=== PATIENT | male | born 1940 | race Caucasian/White ===

== ENCOUNTER → 2018-11-12 | Outpatient (CLI) | payer MEDICARE ==
[~2018-11-12] MED LIST: ASPIRIN 81M81 MG/TA2 PO; CARDURA 2MG2 MG PO; DYAZIDE 25 MG-31 CAP PO; FISH OIL 1000MG1 CAP PO; GLUCOTROL 5M5 MG/TAB PO; NORVASC 10MG10 MG PO; PROTONIX 40MG T40 MG PO; REQUIP 0.5MG0.5 MG PO; SINGULAIR 110 MG/TAB PO; ZOCOR 20MG20 MG PO
== END ==
LOC: COL.VAS 09:57
DX: Z13.6 Encounter for screening for cardiovascular disorders (principal); M79.89 Other specified soft tissue disorders

== ENCOUNTER → 2019-01-26 | Outpatient (CLI) | payer MEDICARE | LOC: COL.LAB 10:53 | DX: Z01.812 Encounter for preprocedural laboratory examination (principal) ==

== ENCOUNTER → 2019-03-17 | Outpatient (CLI) | payer MEDICARE | LOC: COL.VAS 12:55 | DX: R60.0 Localized edema (principal) ==

== ENCOUNTER → 2019-04-06 | Outpatient (CLI) | payer MEDICARE ==
[2019-04-06 17:37] LABS: BASO % 0.4 % (0.0-2.0); EOS # 0.1 (0.0-0.7); EOS % 1.8 % (0-4.0); GRAN # 4.6 (1.4-6.5); HEMATOCRIT 39.8 % (42.0-52.0); LYMPH # 2.1 (1.2-3.4); LYMPH % 27.3 % (20.0-51.0); MEAN CELL VOLUME 94 fl (80.0-100.0); MEAN CORPUSCULAR HEMOGLOBIN 31 pg (27.0-31.0); MEAN CORPUSCULAR HGB CONC 33 g/dl (33.0-37.0); MEAN PLATELET VOLUME 10.7 fl (7.4-10.4); MONO # 0.7 (0.1-0.6); MONO % 9.2 % (1.7-9.3); PLATELET COUNT 229 K/mm3 (130-400); RED BLOOD COUNT 4.22 M/mm3 (4.20-5.60); REDCELL DISTRIBUTION WIDTH-CV 12.9 % (11.5-14.5)
[2019-04-06 17:59] LABS: ERYTHROCYTE SEDIMENTATION RATE 4 mm/hr (0-30)
== END ==
LOC: COL.LAB 16:46
PROVIDERS: Registered Nurse
DX: M79.661 Pain in right lower leg (principal); M79.89 Other specified soft tissue disorders; Z96.651 Presence of right artificial knee joint

== ENCOUNTER → 2019-04-07 | Outpatient (CLI) | payer MEDICARE | LOC: COL.VAS 12:40 | DX: M79.89 Other specified soft tissue disorders (principal); R79.89 Other specified abnormal findings of blood chemistry ==

== ENCOUNTER 2019-09-12 16:59 | Emergency (ER) | payer MEDICARE, OTHER ==
[~2019-09-12] VITALS: Ht 190.5 cm; Wt 100.0 kg
[2019-09-12 17:11] VITALS: TEMP 97.8
[2019-09-12 17:41] LABS: BASO % 0.5 % (0.0-2.0); EOS # 0.2 (0.0-0.7); EOS % 2.7 % (0-4.0); GRAN % 62.3 % (42.2-75.2); HEMOGLOBIN 13.3 g/dl (13.5-18.0); LYMPH # 1.9 (1.2-3.4); LYMPH % 23.5 % (20.0-51.0); MEAN CELL VOLUME 93 fl (80.0-100.0); MEAN CORPUSCULAR HEMOGLOBIN 32 pg (27.0-31.0); MEAN CORPUSCULAR HGB CONC 34 g/dl (33.0-37.0); MEAN PLATELET VOLUME 10.4 fl (7.4-10.4); MONO # 0.8 (0.1-0.6); MONO % 10.5 % (1.7-9.3); PLATELET COUNT 201 K/mm3 (130-400); RED BLOOD COUNT 4.19 M/mm3 (4.20-5.60); REDCELL DISTRIBUTION WIDTH-CV 12.8 % (11.5-14.5)
[2019-09-12 17:47] LABS: INR 0.9 (0.8-3.0); PROTHROMBIN TIME 10.5 SECONDS (9.7-12.8)
[2019-09-12 17:49] LABS: PARTIAL THROMBOPLASTIN TIME 28.3 SECONDS (26.0-37.0)
[2019-09-12 17:59] LABS: ALANINE AMINOTRANSFERASE 19 U/L (21-72); ALBUMIN 4.5 gm/dL (3.5-5.0); ALKALINE PHOSPHATASE 57 U/L (50-136); ANION GAP 11 mmol/L (7-16); AST,SGOT 24 U/L (15-37); BILIRUBIN,TOTAL 0.3 mg/dL (0.0-1.0); BLOOD UREA NITROGEN 21 mg/dL (9-20); CALCIUM 9.9 mg/dL (8.4-10.2); CARBON DIOXIDE 25 mmol/L (22-30); CHLORIDE 100 mmol/L (98-107); CREATININE, serum 1.15 (0.66-1.25); GLUCOSE 164 mg/dL (74-106); SODIUM 136 mmol/L (137-145); TOTAL PROTEIN 7.5 gm/dL (6.4-8.2)
[2019-09-12] MEDS ORDERED: GLUCOPHAGE1000 MG PO (18:03)
[2019-09-12] MEDS ORDERED: PRINZIDE 25 MG-1 TAB PO (18:05)
[2019-09-12] MEDS ORDERED: NEURONTIN100 MG/CAP PO (18:07)
[2019-09-12] MEDS ORDERED: NATURAL E400 IU PO (18:07)
[2019-09-12] MEDS ORDERED: FLOMAX 0.40.4 MG/CAP PO (18:07)
[2019-09-12] MEDS ORDERED: TURMERIC500 MG PO (18:08)
[2019-09-12 18:23] LABS: C-REACTIVE PROTEIN < 0.5 mg/dL (0.0-0.9); TROPONIN-I < 0.012 ng/mL (0.000-0.035)
[2019-09-12] MEDS ORDERED: NORVASC 5MG5 MG/TAB PO (19:29)
[2019-09-12 19:47] VITALS: BP 122/55; PULSE 72
== END 2019-09-12 19:47 | disposition home or self-care (01) ==
LOC: COL.ER 16:59
PROVIDERS: Emergency Medicine
DX: R42 Dizziness and giddiness (principal); K21.9 Gastro-esophageal reflux disease without esophagitis; E78.5 Hyperlipidemia, unspecified; I10 Essential (primary) hypertension; I25.10 Atherosclerotic heart disease of native coronary artery without angina pectoris; E11.9 Type 2 diabetes mellitus without complications; Z79.84 Long term (current) use of oral hypoglycemic drugs
CPT/HCPCS: J7030

== ENCOUNTER → 2020-07-28 | Outpatient (CLI) | payer MEDICARE, OTHER ==
[~2020-07-28] MED LIST changes: +ADVIL200 MG PO; +BRILINTA90 MG PO; +DESYREL 100MG100 MG PO; +EFFIENT10 MG PO; +FLOMAX 0.40.4 MG/CAP PO; +GLUCOPHAGE XR500 M1 PO; +GLUCOPHAGE1000 MG PO; +LIPITOR 80MG80 MG PO; +MAG-OX 400400 MG/TAB PO; +NATURAL E400 IU PO; +NEURONTIN100 MG/CAP PO; +NORVASC 5MG5 MG/TAB PO; +PRINZIDE 25 MG-1 TAB PO; +PROAIR HFA0.09 MG/AC IH; +REQUIP2 MG PO; +TURMERIC500 MG PO; +TYLENOL 8 HR PO; +ZESTRIL 10MG10 MG PO
== END ==
LOC: COL.PUL 11:08
DX: R79.89 Other specified abnormal findings of blood chemistry (principal); R06.02 Shortness of breath; Z87.891 Personal history of nicotine dependence

== ENCOUNTER → 2020-08-19 | Outpatient (CLI) | payer MEDICARE, OTHER | LOC: COL.RAD 10:45 | DX: J98.6 Disorders of diaphragm (principal) ==

== ENCOUNTER 2020-09-22 09:58 | Emergency (ER) | payer MEDICARE ==
[~2020-09-22] VITALS: Ht 190.5 cm; Wt 101.8 kg
[2020-09-22 10:12] VITALS: TEMP 97.8
[2020-09-22 11:03] LABS: BASO % 0.3 % (0.0-2.0); EOS # 0.1 (0.0-0.7); EOS % 1.2 % (0-4.0); GRAN # 4.9 (1.4-6.5); GRAN % 66.9 % (42.2-75.2); HEMOGLOBIN 13.9 g/dl (13.5-18.0); LYMPH # 1.6 (1.2-3.4); LYMPH % 21.5 % (20.0-51.0); MEAN CELL VOLUME 92 fl (80.0-100.0); MEAN CORPUSCULAR HEMOGLOBIN 30 pg (27.0-31.0); MEAN CORPUSCULAR HGB CONC 33 g/dl (33.0-37.0); MEAN PLATELET VOLUME 10.6 fl (7.4-10.4); MONO # 0.7 (0.1-0.6); MONO % 9.5 % (1.7-9.3); PLATELET COUNT 211 K/mm3 (130-400); RED BLOOD COUNT 4.58 M/mm3 (4.20-5.60); REDCELL DISTRIBUTION WIDTH-CV 13.4 % (11.5-14.5)
[2020-09-22 11:16] LABS: ALANINE AMINOTRANSFERASE 26 U/L (4-49); ALBUMIN 4.4 gm/dL (3.5-5.0); ALKALINE PHOSPHATASE 55 U/L (50-136); ANION GAP 7 mmol/L (7-16); AST,SGOT 29 U/L (15-37); BILIRUBIN,TOTAL 0.8 mg/dL (0.0-1.0); BLOOD UREA NITROGEN 27 mg/dL (9-20); CALCIUM 9.6 mg/dL (8.4-10.2); CARBON DIOXIDE 29 mmol/L (22-30); CHLORIDE 99 mmol/L (98-107); CREATININE, serum 1.19 (0.66-1.25); GLUCOSE 155 mg/dL (74-106); POTASSIUM 4.9 mmol/L (3.4-5.0); SODIUM 135 mmol/L (137-145); TOTAL PROTEIN 7.3 gm/dL (6.4-8.2)
[2020-09-22 11:28] LABS: COLLECTION METHOD CLEAN CATCH
[2020-09-22 11:29] LABS: TROPONIN-I < 0.012 ng/mL (0.000-0.035)
[2020-09-22 12:03] LABS: MUCOUS Present /lpf; PH 6 (5-8); SQUAMOUS EPITHELIAL None Seen /hpf; URINE APPEARANCE Clear; URINE BACTERIA None Seen /hpf; URINE BILIRUBIN Negative (NEGATIVE); URINE BLOOD Negative (NEGATIVE); URINE COLOR Yellow; URINE GLUCOSE Negative (NEGATIVE); URINE KETONE Negative (NEGATIVE); URINE LEUKOCYTE ESTERASE 1+ (NEGATIVE); URINE NITRATE Negative (NEGATIVE); URINE PROTEIN(semi-quant) Negative (NEGATIVE); URINE RBC 0-2 /hpf; URINE UROBILINOGEN Negative (NEGATIVE)
[2020-09-22 13:02] VITALS: BP 125/64; PULSE 60
== END 2020-09-22 13:05 | disposition home or self-care (01) ==
LOC: COL.ER 09:58
PROVIDERS: Emergency Medicine
DX: R27.0 Ataxia, unspecified (principal); H81.20 Vestibular neuronitis, unspecified ear; I10 Essential (primary) hypertension; E78.5 Hyperlipidemia, unspecified; N40.0 Benign prostatic hyperplasia without lower urinary tract symptoms; Z87.891 Personal history of nicotine dependence; Z79.84 Long term (current) use of oral hypoglycemic drugs

== ENCOUNTER 2020-10-24 13:43 | Outpatient (RCR) | payer MEDICARE, OTHER | END 2020-10-26 06:39 | disposition home or self-care (01) | LOC: COL.CR 13:43 | DX: Z48.812 Encounter for surgical aftercare following surgery on the circulatory system (principal); Z95.5 Presence of coronary angioplasty implant and graft ==

== ENCOUNTER → 2020-12-27 | Outpatient (CLI) | payer MEDICARE, OTHER ==
[~2020-12-27] MED LIST changes: +ANTIVERT 12.512.5 MG PO; +BREO ELLIPTA 21 EACH IH; +INCRUSE EL62.5 MCG/A IH; +LASIX 20MG TABL20 MG PO; +MELATIN 3 MG-11 TAB PO; +THEO-DUR 3300 MG/TAB PO; +ZESTRIL 20MG TA20 MG PO
== END ==
LOC: MHCPAIN 14:09
DX: M47.817 Spondylosis without myelopathy or radiculopathy, lumbosacral region (principal); M54.16 Radiculopathy, lumbar region; M53.3 Sacrococcygeal disorders, not elsewhere classified; E11.22 Type 2 diabetes mellitus with diabetic chronic kidney disease; N18.9 Chronic kidney disease, unspecified; Z95.5 Presence of coronary angioplasty implant and graft
CPT/HCPCS: G0463

== ENCOUNTER 2021-03-01 22:21 | Emergency (ER) | payer MEDICARE, OTHER ==
[~2021-03-01] VITALS: Ht 190.5 cm; Wt 106.8 kg
[~2021-03-01 22:21] MED LIST changes: -ANTIVERT 12.512.5 MG PO; -BREO ELLIPTA 21 EACH IH; -INCRUSE EL62.5 MCG/A IH; -LASIX 20MG TABL20 MG PO; -MELATIN 3 MG-11 TAB PO; -THEO-DUR 3300 MG/TAB PO; -ZESTRIL 20MG TA20 MG PO
[2021-03-01 22:48] VITALS: TEMP 98.1
[2021-03-01 23:29] LABS: COLLECTION METHOD CLEAN CATCH
[2021-03-01 23:31] LABS: BASO % 0.4 % (0.0-2.0); EOS # 0.4 (0.0-0.7); EOS % 5.2 % (0-4.0); GRAN # 4.4 (1.4-6.5); GRAN % 58.8 % (42.2-75.2); HEMATOCRIT 40.6 % (42.0-52.0); HEMOGLOBIN 13.5 g/dl (13.5-18.0); LYMPH # 1.9 (1.2-3.4); LYMPH % 25.8 % (20.0-51.0); MEAN CELL VOLUME 93 fl (80.0-100.0); MEAN CORPUSCULAR HEMOGLOBIN 31 pg (27.0-31.0); MEAN CORPUSCULAR HGB CONC 33 g/dl (33.0-37.0); MEAN PLATELET VOLUME 10.9 fl (7.4-10.4); MONO # 0.7 (0.1-0.6); MONO % 9.3 % (1.7-9.3); PLATELET COUNT 210 K/mm3 (130-400); RED BLOOD COUNT 4.36 M/mm3 (4.20-5.60); REDCELL DISTRIBUTION WIDTH-CV 12.6 % (11.5-14.5)
[2021-03-01 23:34] LABS: PH 7 (5-8); SQUAMOUS EPITHELIAL 0-2 /hpf; URINE APPEARANCE Clear; URINE BACTERIA None Seen /hpf; URINE BILIRUBIN Negative (NEGATIVE); URINE BLOOD Negative (NEGATIVE); URINE COLOR Straw; URINE GLUCOSE Negative (NEGATIVE); URINE KETONE Negative (NEGATIVE); URINE LEUKOCYTE ESTERASE Negative (NEGATIVE); URINE NITRATE Negative (NEGATIVE); URINE PROTEIN(semi-quant) Negative (NEGATIVE); URINE RBC 0-2 /hpf; URINE UROBILINOGEN Negative (NEGATIVE)
[2021-03-01 23:37] LABS: ALANINE AMINOTRANSFERASE 23 U/L (4-49); ALBUMIN 4.3 gm/dL (3.5-5.0); ALKALINE PHOSPHATASE 66 U/L (50-136); ANION GAP 9 mmol/L (7-16); AST,SGOT 24 U/L (15-37); BILIRUBIN,TOTAL 0.2 mg/dL (0.0-1.0); BLOOD UREA NITROGEN 23 mg/dL (9-20); CALCIUM 9.8 mg/dL (8.4-10.2); CARBON DIOXIDE 26 mmol/L (22-30); CHLORIDE 101 mmol/L (98-107); CREATININE, serum 1.37 (0.66-1.25); GLUCOSE 159 mg/dL (74-106); POTASSIUM 4.6 mmol/L (3.4-5.0); SODIUM 136 mmol/L (137-145); TOTAL PROTEIN 7.7 gm/dL (6.4-8.2)
[2021-03-01 23:58] LABS: TROPONIN-I < 0.012 ng/mL (0.000-0.035)
[2021-03-02 01:12] VITALS: BP 126/71; PULSE 83
== END 2021-03-02 01:12 | disposition home or self-care (01) ==
LOC: COL.ER 22:21
PROVIDERS: Emergency Medicine
DX: M79.89 Other specified soft tissue disorders (principal); R60.0 Localized edema; E78.5 Hyperlipidemia, unspecified; E11.22 Type 2 diabetes mellitus with diabetic chronic kidney disease; I12.9 Hypertensive chronic kidney disease with stage 1 through stage 4 chronic kidney disease, or unspecified chronic kidney disease; N18.9 Chronic kidney disease, unspecified; I25.10 Atherosclerotic heart disease of native coronary artery without angina pectoris; J45.909 Unspecified asthma, uncomplicated; K21.9 Gastro-esophageal reflux disease without esophagitis; Z95.5 Presence of coronary angioplasty implant and graft; Z96.651 Presence of right artificial knee joint; Z79.82 Long term (current) use of aspirin; Z79.84 Long term (current) use of oral hypoglycemic drugs; Z79.51 Long term (current) use of inhaled steroids; Z79.899 Other long term (current) drug therapy

== ENCOUNTER → 2021-03-23 | Outpatient (CLI) | payer MEDICARE, OTHER ==
[~2021-03-23] MED LIST changes: +ANTIVERT 12.512.5 MG PO; +BREO ELLIPTA 21 EACH IH; +INCRUSE EL62.5 MCG/A IH; +LASIX 20MG TABL20 MG PO; +MELATIN 3 MG-11 TAB PO; +THEO-DUR 3300 MG/TAB PO; +ZESTRIL 20MG TA20 MG PO
== END ==
LOC: MHCPAIN 08:37
DX: M47.817 Spondylosis without myelopathy or radiculopathy, lumbosacral region (principal); M54.16 Radiculopathy, lumbar region
CPT/HCPCS: G0463; J1100; Q9967

== ENCOUNTER 2021-04-07 22:43 | Emergency (ER) | payer MEDICARE, OTHER ==
[~2021-04-07] VITALS: Ht 190.5 cm; Wt 104.5 kg
[~2021-04-07 22:43] MED LIST changes: -ANTIVERT 12.512.5 MG PO; -BREO ELLIPTA 21 EACH IH; -INCRUSE EL62.5 MCG/A IH; -LASIX 20MG TABL20 MG PO; -MELATIN 3 MG-11 TAB PO; -THEO-DUR 3300 MG/TAB PO; -ZESTRIL 20MG TA20 MG PO
[2021-04-07 22:49] VITALS: TEMP 97.2
[2021-04-07 23:17] LABS: BASO % 0.4 % (0.0-2.0); EOS # 0.3 (0.0-0.7); EOS % 3.6 % (0-4.0); GRAN # 5.1 (1.4-6.5); GRAN % 63.3 % (42.2-75.2); HEMATOCRIT 40.1 % (42.0-52.0); HEMOGLOBIN 13.4 g/dl (13.5-18.0); LYMPH # 1.9 (1.2-3.4); LYMPH % 23.6 % (20.0-51.0); MEAN CELL VOLUME 94 fl (80.0-100.0); MEAN CORPUSCULAR HEMOGLOBIN 31 pg (27.0-31.0); MEAN CORPUSCULAR HGB CONC 33 g/dl (33.0-37.0); MEAN PLATELET VOLUME 10.9 fl (7.4-10.4); MONO # 0.7 (0.1-0.6); MONO % 8.5 % (1.7-9.3); PLATELET COUNT 193 K/mm3 (130-400); RED BLOOD COUNT 4.28 M/mm3 (4.20-5.60); REDCELL DISTRIBUTION WIDTH-CV 12.8 % (11.5-14.5)
[2021-04-07 23:33] LABS: ALANINE AMINOTRANSFERASE 28 U/L (4-49); ALBUMIN 4.3 gm/dL (3.5-5.0); ALKALINE PHOSPHATASE 58 U/L (50-136); ANION GAP 5 mmol/L (7-16); AST,SGOT 25 U/L (15-37); BILIRUBIN,TOTAL 0.3 mg/dL (0.0-1.0); BLOOD UREA NITROGEN 24 mg/dL (9-20); CALCIUM 10.2 mg/dL (8.4-10.2); CARBON DIOXIDE 27 mmol/L (22-30); CHLORIDE 101 mmol/L (98-107); CREATININE, serum 1.35 (0.66-1.25); GLUCOSE 161 mg/dL (74-106); POTASSIUM 4.3 mmol/L (3.4-5.0); SODIUM 134 mmol/L (137-145); TOTAL PROTEIN 7.4 gm/dL (6.4-8.2)
[2021-04-07 23:39] LABS: CREATINE KINASE 130 U/L (55-170); MAGNESIUM 2.3 mg/dL (1.6-2.3)
[2021-04-07 23:57] LABS: TROPONIN-I < 0.012 ng/mL (0.000-0.035)
[2021-04-08] MEDS ORDERED: ZESTRIL 20MG TA20 MG PO (00:25)
[2021-04-08] MEDS ORDERED: BREO ELLIPTA 21 EACH IH (00:26)
[2021-04-08] MEDS ORDERED: INCRUSE EL62.5 MCG/A IH (00:27)
[2021-04-08] MEDS ORDERED: THEO-DUR 3300 MG/TAB PO (00:27)
[2021-04-08] MEDS ORDERED: LASIX 20MG TABL20 MG PO (00:28)
[2021-04-08] MEDS ORDERED: ANTIVERT 12.512.5 MG PO (00:28)
[2021-04-08] MEDS ORDERED: MELATIN 3 MG-11 TAB PO (00:29)
[2021-04-08 00:58] VITALS: BP 104/72; PULSE 65
== END 2021-04-08 00:59 | disposition home or self-care (01) ==
LOC: COL.ER 22:43
PROVIDERS: Emergency Medicine
DX: R06.00 Dyspnea, unspecified (principal); R79.89 Other specified abnormal findings of blood chemistry; R06.02 Shortness of breath; E86.0 Dehydration; J45.909 Unspecified asthma, uncomplicated; I10 Essential (primary) hypertension; I25.10 Atherosclerotic heart disease of native coronary artery without angina pectoris; E11.9 Type 2 diabetes mellitus without complications; Z87.891 Personal history of nicotine dependence; Z79.82 Long term (current) use of aspirin; Z79.51 Long term (current) use of inhaled steroids; Z79.899 Other long term (current) drug therapy
CPT/HCPCS: J7030

== ENCOUNTER → 2021-04-19 | Outpatient (CLI) | payer MEDICARE, OTHER ==
[~2021-04-19] MED LIST changes: +ANTIVERT 12.512.5 MG PO; +BREO ELLIPTA 21 EACH IH; +INCRUSE EL62.5 MCG/A IH; +LASIX 20MG TABL20 MG PO; +MELATIN 3 MG-11 TAB PO; +THEO-DUR 3300 MG/TAB PO; +ZESTRIL 20MG TA20 MG PO
== END ==
LOC: MHCPAIN 09:45
DX: M47.817 Spondylosis without myelopathy or radiculopathy, lumbosacral region (principal); M53.3 Sacrococcygeal disorders, not elsewhere classified; M54.16 Radiculopathy, lumbar region
CPT/HCPCS: G0463

== ENCOUNTER → 2021-07-05 | Outpatient (CLI) | payer MEDICARE, OTHER | LOC: MHCPAIN 09:36 | DX: M47.817 Spondylosis without myelopathy or radiculopathy, lumbosacral region (principal); M54.16 Radiculopathy, lumbar region; M54.2 Cervicalgia | CPT/HCPCS: G0463 ==

== ENCOUNTER 2021-07-20 11:15 | Outpatient (RCR) | payer MEDICARE, OTHER | END 2021-07-26 | disposition still patient (30) | LOC: WSPT | DX: M47.896 Other spondylosis, lumbar region (principal) ==

== ENCOUNTER 2021-09-01 10:30 | Outpatient (RCR) | payer MEDICARE, OTHER | END 2021-09-01 15:00 | disposition home or self-care (01) | LOC: WSPT 10:30 | DX: M47.816 Spondylosis without myelopathy or radiculopathy, lumbar region (principal) ==

== ENCOUNTER 2021-11-15 10:54 | Emergency (ER) | payer MEDICARE, OTHER ==
[~2021-11-15] VITALS: Ht 190.5 cm; Wt 102.3 kg
[2021-11-15 11:00] VITALS: BP 102/55; PULSE 89; TEMP 97.6
== END 2021-11-15 11:55 | disposition home or self-care (01) ==
LOC: COL.ER 10:54
DX: R60.0 Localized edema (principal); E11.40 Type 2 diabetes mellitus with diabetic neuropathy, unspecified; I10 Essential (primary) hypertension; J44.9 Chronic obstructive pulmonary disease, unspecified; I25.10 Atherosclerotic heart disease of native coronary artery without angina pectoris; Z96.651 Presence of right artificial knee joint; Z79.82 Long term (current) use of aspirin; Z79.84 Long term (current) use of oral hypoglycemic drugs; Z79.899 Other long term (current) drug therapy

== ENCOUNTER → 2021-12-28 | Outpatient (CLI) | payer MEDICARE, OTHER | LOC: MHCPAIN 09:18 | DX: M47.817 Spondylosis without myelopathy or radiculopathy, lumbosacral region (principal); M53.3 Sacrococcygeal disorders, not elsewhere classified; M54.16 Radiculopathy, lumbar region | CPT/HCPCS: J1100; Q9967 ==

== ENCOUNTER → 2022-01-30 | Outpatient (CLI) | payer MEDICARE, OTHER | LOC: MHCPAIN 11:06 | DX: M54.12 Radiculopathy, cervical region (principal); M54.50 Low back pain, unspecified; M53.3 Sacrococcygeal disorders, not elsewhere classified | CPT/HCPCS: G0463 ==

== ENCOUNTER → 2022-02-01 | Outpatient (RCR) | payer MEDICARE, OTHER | END | disposition still patient (30) | LOC: WSPT | DX: M54.12 Radiculopathy, cervical region (principal); R53.1 Weakness ==

== ENCOUNTER 2022-02-21 00:14 | Emergency (ER) | payer MEDICARE, OTHER ==
[2022-02-21 00:20] VITALS: TEMP 98.4
[2022-02-21 00:54] LABS: BASO % 0.3 % (0.0-2.0); EOS # 0.1 K/mm3 (0.0-0.7); EOS % 0.9 % (0.0-4.0); GRAN # 4.6 K/mm3 (1.4-6.5); GRAN % 68.8 % (42.2-75.2); HEMATOCRIT 37.3 % (42.0-52.0); HEMOGLOBIN 12.6 g/dl (13.5-18.0); LYMPH # 1.4 K/mm3 (1.2-3.4); LYMPH % 20.8 % (20.0-51.0); MEAN CELL VOLUME 94 fl (80.0-100.0); MEAN CORPUSCULAR HEMOGLOBIN 32 pg (27-31); MEAN CORPUSCULAR HGB CONC 34 g/dl (33.0-37.0); MEAN PLATELET VOLUME 11.7 fl (7.4-10.4); MONO # 0.6 K/mm3 (0.1-0.6); MONO % 8.8 % (1.7-9.3); PLATELET COUNT 174 K/mm3 (130-400); RED BLOOD COUNT 3.99 M/mm3 (4.20-5.60); REDCELL DISTRIBUTION WIDTH-CV 12.6 % (11.5-14.5)
[2022-02-21 01:12] LABS: ALBUMIN 3.8 gm/dL (3.4-4.8); BILIRUBIN,TOTAL 0.4 mg/dL (0.2-1.2); CALCIUM 9.2 mg/dL (8.4-10.2); CREATININE, serum 1.61 mg/dL (0.72-1.25); POTASSIUM 4.5 mmol/L (3.5-4.5); TOTAL PROTEIN 6.4 gm/dL (6.2-8.1)
[2022-02-21 02:42] VITALS: BP 130/69; PULSE 60
== END 2022-02-21 02:42 | disposition home or self-care (01) ==
LOC: COL.ER 00:14
PROVIDERS: Personal Emergency Response Attendant
DX: E86.0 Dehydration (principal)
CPT/HCPCS: J2405; J7030

== ENCOUNTER 2022-03-02 09:30 | Outpatient (RCR) | payer MEDICARE, OTHER | END 2022-03-03 | disposition home or self-care (01) | LOC: WSPT | DX: M54.12 Radiculopathy, cervical region (principal) ==

== ENCOUNTER 2022-03-30 10:00 | Outpatient (RCR) | payer MEDICARE, OTHER | END 2022-04-03 | disposition home or self-care (01) | LOC: WSPT | DX: M54.12 Radiculopathy, cervical region (principal) ==

== ENCOUNTER 2022-04-05 08:41 | Outpatient (CLI) | payer MEDICARE, OTHER ==
[~2022-04-05] VITALS: Ht 190.7 cm; Wt 99.1 kg
[2022-04-05] MEDS ORDERED: LIPITOR 80MG80 MG PO (09:36)
[2022-04-05] MEDS ORDERED: CEPHALEXIN500 M1 PO ×2 (09:37→09:54)
[2022-04-05] MEDS ORDERED: THEO-24 30300 MG/CAP PO (09:41)
[2022-04-05] MEDS ORDERED: ZYRTEC 10MG10 MG PO (09:43)
[2022-04-05] MEDS ORDERED: LASIX 20MG TABL20 MG PO (09:44)
[2022-04-05] MEDS ORDERED: LYRICA 75MG CAP75 MG PO (09:45)
[2022-04-05] MEDS ORDERED: TOPROL XL 25MG25 MG PO (09:46)
[2022-04-05] MEDS ORDERED: PROTONIX 40MG T40 MG PO (09:47)
[2022-04-05] MEDS ORDERED: PREDNISONE 5MG5 MG PO (09:47)
[2022-04-05] MEDS ORDERED: TYLENOL 8 HR PO (09:48)
[2022-04-05] MEDS ORDERED: PROBIOTIC ACID1 EAC3 PO (09:48)
[2022-04-05] MEDS ORDERED: DIOVAN 160MG160 MG PO (09:50)
[2022-04-05 09:58] VITALS: BP 113/87; PULSE 56; TEMP 97.8
[2022-04-05 10:05] VITALS: BP 124/59; PULSE 90
--- NOTE | 2022-04-05 10:18 | NUR ---
Discharge instructions given to pt.Pt verbalizes understanding.Dressing observed clean,dry,intact.Pt escorted out by this nurse.
== END 2022-04-05 10:19 ==
LOC: COL.CAR 08:41
DX: I47.1 Supraventricular tachycardia (principal); I08.0 Rheumatic disorders of both mitral and aortic valves; I10 Essential (primary) hypertension; I87.2 Venous insufficiency (chronic) (peripheral); I73.9 Peripheral vascular disease, unspecified; E78.5 Hyperlipidemia, unspecified; E78.2 Mixed hyperlipidemia; R60.0 Localized edema; D64.9 Anemia, unspecified; Z95.5 Presence of coronary angioplasty implant and graft; Z79.899 Other long term (current) drug therapy; Z79.01 Long term (current) use of anticoagulants; Z87.891 Personal history of nicotine dependence
CPT/HCPCS: 27886; C1764

== ENCOUNTER → 2022-04-24 | Outpatient (CLI) | payer MEDICARE, OTHER ==
[~2022-04-24] MED LIST changes: +CEPHALEXIN500 M1 PO; +DIOVAN 160MG160 MG PO; +LYRICA 75MG CAP75 MG PO; +PREDNISONE 5MG5 MG PO; +PROBIOTIC ACID1 EAC3 PO; +THEO-24 30300 MG/CAP PO; +TOPROL XL 25MG25 MG PO; +ZYRTEC 10MG10 MG PO
== END ==
LOC: MHCPAIN 10:27
DX: M47.817 Spondylosis without myelopathy or radiculopathy, lumbosacral region (principal); M53.3 Sacrococcygeal disorders, not elsewhere classified; M54.16 Radiculopathy, lumbar region
CPT/HCPCS: G0463

== ENCOUNTER 2022-05-09 10:40 | Day surgery (SDC) | payer MEDICARE, OTHER ==
[2022-05-09] VITALS (244 sets, daily range): BP systolic 99–133; BP diastolic 46–86; PULSE 46–68; TEMP 98.4; O2SAT 84–96
[~2022-05-09] VITALS: Ht 190.5 cm; Wt 99.4 kg
[2022-05-09] MEDS ORDERED: FLOVENT 110MCG7.9 GM IH (11:59)
[2022-05-09 12:00] LABS: PROTHROMBIN TIME 11.1 SECONDS (9.7-12.8)
[2022-05-09 12:02] LABS: PARTIAL THROMBOPLASTIN TIME 32.3 SECONDS (26.0-37.0)
[2022-05-09 12:10] LABS: CREATININE, serum 1.21 mg/dL (0.72-1.25); POTASSIUM 3.6 mmol/L (3.5-4.5)
[2022-05-09 12:12] LABS: HEMATOCRIT 40.2 % (42.0-52.0); HEMOGLOBIN 13.7 g/dl (13.5-18.0); MEAN CELL VOLUME 93 fl (80.0-100.0); MEAN CORPUSCULAR HEMOGLOBIN 32 pg (27-31); MEAN CORPUSCULAR HGB CONC 34 g/dl (33.0-37.0); MEAN PLATELET VOLUME 12.2 fl (7.4-10.4); PLATELET COUNT 178 K/mm3 (130-400); RED BLOOD COUNT 4.31 M/mm3 (4.20-5.60); REDCELL DISTRIBUTION WIDTH-CV 12.7 % (11.5-14.5)
--- NOTE | 2022-05-09 13:02 | NUR ---
See merge for all medication, assessment, intervention, and vitalsign times.
--- NOTE | 2022-05-09 15:30 | NUR ---
2 MLS OF AIR REMOVED FROM TR BAND PER ORDER.
--- NOTE | 2022-05-09 15:50 | NUR ---
THIS NURSE RETURNED TO CHECK TR BAND, SITE WITH BLOODY DRAINAGE, 2 MLS OF AIR RETURNED TO TR BAND
--- NOTE | 2022-05-09 16:00 | NUR ---
2 MLS OF AIR REPLACED IN BAND D/T ACTIVE BLEEDING, BLEEDING STOPPED ONCE AIR WAS REPLACED.
--- NOTE | 2022-05-09 19:00 | NUR ---
REMAINDER OF AIR IN TR BAND REMOVED BY BECKI LINTONOTHER WOOD PROCESSING MACHINE OPERATOR NURSE
== END 2022-05-09 18:45 | disposition home or self-care (01) ==
LOC: COL.CAR 10:40
PROVIDERS: Internal Medicine Cardiovascular Disease
DX: I25.10 Atherosclerotic heart disease of native coronary artery without angina pectoris (principal)
CPT/HCPCS: C1769; J1644; J2250; J3010

== ENCOUNTER → 2022-06-04 | Outpatient (CLI) | payer MEDICARE, OTHER ==
[~2022-06-04] MED LIST changes: +B-12 500 MCG PO; +DIOVAN 40MG40 MG PO; +FLOVENT 110MCG7.9 GM IH; +JARDIANCE10; +PROBIOTIC BLEN1 EACH PO
== END ==
LOC: MHCPAIN 05-03 09:59
DX: M47.817 Spondylosis without myelopathy or radiculopathy, lumbosacral region (principal); M53.3 Sacrococcygeal disorders, not elsewhere classified; M54.16 Radiculopathy, lumbar region
CPT/HCPCS: G0463; J1100; Q9967

== ENCOUNTER → 2022-06-05 | Outpatient (CLI) | payer MEDICARE, OTHER | LOC: MHCPAIN 11:06 | DX: M47.817 Spondylosis without myelopathy or radiculopathy, lumbosacral region (principal); M79.2 Neuralgia and neuritis, unspecified; M53.3 Sacrococcygeal disorders, not elsewhere classified; M54.16 Radiculopathy, lumbar region; E11.22 Type 2 diabetes mellitus with diabetic chronic kidney disease; N18.9 Chronic kidney disease, unspecified | CPT/HCPCS: G0463 ==

== ENCOUNTER 2022-06-12 06:45 | Emergency (ER) | payer MEDICARE, OTHER ==
[~2022-06-12] VITALS: Ht 190.5 cm; Wt 100.0 kg
[~2022-06-12 06:45] MED LIST changes: -B-12 500 MCG PO; -DIOVAN 40MG40 MG PO; -JARDIANCE10; -PROBIOTIC BLEN1 EACH PO
[2022-06-12 07:05] LABS: BASO % 0.3 % (0.0-2.0); EOS # 0.2 K/mm3 (0.0-0.7); EOS % 2.1 % (0.0-4.0); GRAN # 6.4 K/mm3 (1.4-6.5); GRAN % 54.7 % (42.2-75.2); HEMOGLOBIN 13.9 g/dl (13.5-18.0); LYMPH # 3.7 K/mm3 (1.2-3.4); LYMPH % 31.4 % (20.0-51.0); MEAN CELL VOLUME 94 fl (80.0-100.0); MEAN CORPUSCULAR HEMOGLOBIN 31 pg (27-31); MEAN CORPUSCULAR HGB CONC 33 g/dl (33.0-37.0); MEAN PLATELET VOLUME 11.5 fl (7.4-10.4); MONO # 1.3 K/mm3 (0.1-0.6); MONO % 11.1 % (1.7-9.3); PLATELET COUNT 239 K/mm3 (130-400); RED BLOOD COUNT 4.47 M/mm3 (4.20-5.60); REDCELL DISTRIBUTION WIDTH-CV 12.8 % (11.5-14.5)
[2022-06-12] MEDS ORDERED: B-12 500 MCG PO (07:24)
[2022-06-12] MEDS ORDERED: JARDIANCE10 (07:25)
[2022-06-12 07:26] LABS: ALANINE AMINOTRANSFERASE 17 U/L (0-55); ALBUMIN 4.2 gm/dL (3.4-4.8); ALKALINE PHOSPHATASE 64 U/L (40-150); ANION GAP 12 mmol/L (7-16); AST,SGOT 12 U/L (5-34); BILIRUBIN,TOTAL 0.6 mg/dL (0.2-1.2); BLOOD UREA NITROGEN 23 mg/dL (8-26); CALCIUM 11.4 mg/dL (8.4-10.2); CARBON DIOXIDE 27 mmol/L (23-31); CHLORIDE 102 mmol/L (98-107); CREATININE, serum 1.44 mg/dL (0.72-1.25); GLUCOSE 133 mg/dL (70-99); SODIUM 141 mmol/L (136-145); TOTAL PROTEIN 7.7 gm/dL (6.2-8.1)
[2022-06-12] MEDS ORDERED: LYRICA 75MG CAP75 MG PO (07:26)
[2022-06-12] MEDS ORDERED: MAG-OX 400400 MG/TAB PO (07:27)
[2022-06-12] MEDS ORDERED: DIOVAN 40MG40 MG PO (07:30)
[2022-06-12] MEDS ORDERED: PROBIOTIC BLEN1 EACH PO (07:30)
[2022-06-12 07:33] LABS: TROPONIN-I < 0.010 ng/mL (0.00-0.033)
[2022-06-12 07:56] LABS: COLLECTION METHOD CLEAN CATCH
[2022-06-12 08:09] LABS: SQUAMOUS EPITHELIAL None Seen /hpf (0-10); URINE BACTERIA None Seen /hpf (NONE SEEN); URINE RBC None Seen /hpf (0-2)
[2022-06-12 08:44] VITALS: BP 132/69; PULSE 103
[2022-06-12 12:16] LABS: PH 6 (5-8); URINE APPEARANCE Clear (CLEAR/HAZY); URINE COLOR Yellow (YELLOW)
[2022-06-12 12:17] LABS: URINE GLUCOSE 4+ (NEGATIVE); URINE KETONE Negative (NEGATIVE); URINE NITRATE Negative (NEGATIVE); URINE PROTEIN(semi-quant) Negative (NEGATIVE); URINE UROBILINOGEN Negative (NEGATIVE)
[2022-06-12 12:18] LABS: URINE BLOOD Negative (NEGATIVE)
== END 2022-06-12 08:51 | disposition home or self-care (01) ==
LOC: COL.ER 06:45
PROVIDERS: Family Medicine; Personal Emergency Response Attendant
DX: R41.82 Altered mental status, unspecified (principal); Z87.891 Personal history of nicotine dependence
CPT/HCPCS: J7040

== ENCOUNTER → 2022-08-29 | Outpatient (CLI) | payer MEDICARE, OTHER ==
[~2022-08-29] MED LIST changes: +B-12 500 MCG PO; +DIOVAN 40MG40 MG PO; +JARDIANCE10; +PROBIOTIC BLEN1 EACH PO
== END ==
LOC: MHCPAIN 10:26
DX: M47.816 Spondylosis without myelopathy or radiculopathy, lumbar region (principal); M54.50 Low back pain, unspecified; M53.3 Sacrococcygeal disorders, not elsewhere classified; E11.22 Type 2 diabetes mellitus with diabetic chronic kidney disease; N18.9 Chronic kidney disease, unspecified
CPT/HCPCS: G0463

== ENCOUNTER → 2023-01-16 | Outpatient (CLI) | payer MEDICARE, OTHER | LOC: MHCPAIN 10:20 | DX: M54.50 Low back pain, unspecified (principal); M53.3 Sacrococcygeal disorders, not elsewhere classified; I25.10 Atherosclerotic heart disease of native coronary artery without angina pectoris; G89.29 Other chronic pain; Z95.5 Presence of coronary angioplasty implant and graft; N18.9 Chronic kidney disease, unspecified; E11.22 Type 2 diabetes mellitus with diabetic chronic kidney disease | CPT/HCPCS: G0463 ==

== ENCOUNTER → 2023-08-14 | Outpatient (CLI) | payer MEDICARE, OTHER | LOC: MHCPAIN 10:36 | DX: M79.2 Neuralgia and neuritis, unspecified (principal); M96.1 Postlaminectomy syndrome, not elsewhere classified; E11.22 Type 2 diabetes mellitus with diabetic chronic kidney disease; N18.9 Chronic kidney disease, unspecified; M54.50 Low back pain, unspecified | CPT/HCPCS: G0463 ==

== ENCOUNTER 2023-10-02 10:24 | Day surgery (SDC) | payer MEDICARE, OTHER ==
[2023-10-02] VITALS (13 sets, daily range): BP systolic 99–138; BP diastolic 39–83; PULSE 51–92; TEMP 97.3–98.1
[~2023-10-02] VITALS: Ht 190.5 cm; Wt 101.8 kg
--- NOTE | 2023-10-02 11:48 | NUR ---
PATIENT AMBULATED TO BAY 2 WITH SLOW GAIT AND USE OF CANE. ALERT AND ORIENTED X4. PATIENT STATED UNDERSTANDING OF PROCEDURE. CONSENTS SIGNED. ASSESSMENT COMPLETED. 20G IV STARTED IN LEFT FOREARM. BLOOD RETURN NOTED. LR INFUSING WITHOUT DIFFICULTIES. BLOOD GLUCOSE 140, OBTAINED FROM IV START. SPO2 INITIALLY 83%. WARMED PATIENTS HANDS, SPO2 UP TO 95%. PATIENT HAS HX OF ASTHMA AND STATED HE WAS AT BASELINE. PATRICE ARREDONDO NOTIFIED. WARM BLANKET PROVIDED. NO FURTHER NEEDS NOTED. RESTING IN COT. CALL LIGHT IN REACH. [id number] AT BEDSIDE.
[2023-10-02] MEDS ORDERED: DIOVAN 160MG160 MG PO (12:14)
[2023-10-02] MEDS ORDERED: PREDNISONE 2.52.5 MG PO (12:19)
[2023-10-02] MEDS ORDERED: PROTONIX20 MG PO (12:20)
[2023-10-02] MEDS ORDERED: ZYRTEC 10MG10 MG PO (12:25)
[2023-10-02] MEDS ORDERED: ZANAFLEX2 MG PO (12:29)
[2023-10-02] MEDS ORDERED: NORCO 325 MG-51 TAB PO ×2 (12:30→22:51)
[2023-10-02] MEDS ORDERED: CEPHALEXIN500 M1 PO (12:31)
[2023-10-02] MEDS ORDERED: VENTOLIN0.09 MG IH (12:31)
[2023-10-02] MEDS ORDERED: ATROVENTNS0.03% NS (12:32)
[2023-10-02] MEDS ORDERED: B-12 500 MCG PO (12:35)
[2023-10-02] MEDS ORDERED: FARXIGA10 PO (12:35)
[2023-10-02] MEDS ORDERED: PROBIOTIC BLEN1 EACH PO (12:37)
--- NOTE | 2023-10-02 15:44 | NUR ---
Pt recently arrived to the floor from [facility]. Pt is alert and oriented with no pain complaints at this time. Pts does have family member at bedside. Umbilical incision is well approximated with no drainage or redness noted. Pt does have a stage 2 on his bottom. When I questioned him about this, he reported he was aware of it and has been cautious with it for about a year. Oriented pt to the room and educated on room service. No needs at this time, did give him fresh ice water. Call light within reach
[2023-10-02] MEDS ORDERED: GLUCOTROL10 MG PO (15:49)
[2023-10-02] MEDS ORDERED: MELATONIN5 M1 SL (15:57)
[2023-10-02] MEDS ORDERED: TYLENOL 8 HR PO (16:16)
--- NOTE | 2023-10-02 16:25 | NUR ---
Pt tolerated regular food with no complaints of feeling nauseated. Pt not having any complaints of pain. Pt has been up to the restroom and voided without difficulty. PT was steady on his feet for transfer
--- NOTE | 2023-10-02 17:26 | NUR ---
Pt continues to do well with no pain complaints, denies any needs. Call light within reach
--- NOTE | 2023-10-02 22:09 | NUR ---
shift assessment complete, see documentation. pt reports minimal pain and requests prn tylenol. administered per orders. pt ambulated to bathroom sba with steady gait. pt voided without issue. pt tolerated hs meds. bed alarm on. call light in place. all needs met at this time.
[2023-10-03 00:59] VITALS: BP_SYST 114
[2023-10-03 03:41] VITALS: BP 104/50; PULSE 48; TEMP 98.1
[2023-10-03 05:34] VITALS: BP_SYST 104
[2023-10-03 07:54] VITALS: BP 121/61; PULSE 50; TEMP 97.5
[2023-10-03 09:00] VITALS: BP_SYST 121
--- NOTE | 2023-10-03 10:15 | NUR ---
PATIENT ALERT AND ORIENTED X4. VSS. PATIENT HERE FOR UMBILICAL HERNIORRAPHN. INCISION X1 CDI WITH SKIN GLUE. IV TO RIGHT HAND, INT FLUSHES WELL. PATIENT REPORTS PAIN 8/10, REQUESTS PAIN MEDICATION. PATIENT RESTING IN THE CHAIR, CALL LIGHT IN REACH.
--- NOTE | 2023-10-03 11:30 | NUR ---
DISCHARGE INSTRUCTIONS PROVIDED. PATIENT EDUCATION GIVEN. IV DC'D. FOLLOW UP APPOINTMENT DISCUSSED. MEDICATIONS REVIEWED. PATIENT DENIES ANY QUESTIONS OR CONCERNS. PATIENT ESCORTED OUT VIA WHEELCHAIR.
== END 2023-10-03 11:30 | disposition home or self-care (01) ==
LOC: SDCO 10:24 → SURG 15:20 → SDCO 10-03 11:30
DX: K42.9 Umbilical hernia without obstruction or gangrene (principal); E11.9 Type 2 diabetes mellitus without complications; I10 Essential (primary) hypertension; Z79.899 Other long term (current) drug therapy; Z86.79 Personal history of other diseases of the circulatory system; Z79.84 Long term (current) use of oral hypoglycemic drugs
CPT/HCPCS: OP; A9270; C1781; J0690; J2704; J3010; J7120; J7512

== ENCOUNTER → 2023-12-11 | Outpatient (CLI) | payer MEDICARE, OTHER ==
[~2023-12-11] MED LIST changes: +ATROVENTNS0.03% NS; +FARXIGA10 PO; +GLUCOTROL10 MG PO; +MELATONIN5 M1 SL; +NORCO 325 MG-51 TAB PO; +PREDNISONE 2.52.5 MG PO; +PROTONIX20 MG PO; +VENTOLIN0.09 MG IH; +ZANAFLEX2 MG PO
== END ==
LOC: MHCPAIN 10:37
DX: M54.50 Low back pain, unspecified (principal); M53.3 Sacrococcygeal disorders, not elsewhere classified; M96.1 Postlaminectomy syndrome, not elsewhere classified; E11.40 Type 2 diabetes mellitus with diabetic neuropathy, unspecified
CPT/HCPCS: G0463

== ENCOUNTER → 2023-12-26 | Outpatient (CLI) | payer MEDICARE, OTHER ==
[~2023-12-26] MED LIST changes: +Iohexol 300 - 10 ML VIAL ONE; +Lidocaine PF 2% (20 MG/ML) 2 ML VIAL ONE
== END ==
LOC: MHCPAIN 08:16
DX: M47.816 Spondylosis without myelopathy or radiculopathy, lumbar region (principal); M96.1 Postlaminectomy syndrome, not elsewhere classified; M54.16 Radiculopathy, lumbar region
CPT/HCPCS: J1100; Q9967

== ENCOUNTER → 2024-01-22 | Outpatient (CLI) | payer MEDICARE, OTHER ==
[~2024-01-22] MED LIST changes: -Iohexol 300 - 10 ML VIAL ONE; -Lidocaine PF 2% (20 MG/ML) 2 ML VIAL ONE
== END ==
LOC: MHCPAIN 13:40
DX: M48.061 Spinal stenosis, lumbar region without neurogenic claudication (principal); M47.816 Spondylosis without myelopathy or radiculopathy, lumbar region; M47.812 Spondylosis without myelopathy or radiculopathy, cervical region; M96.1 Postlaminectomy syndrome, not elsewhere classified
CPT/HCPCS: G0463

== ENCOUNTER 2024-02-07 23:21 | Observation (INO) | payer MEDICARE, OTHER ==
[~2024-02-07] VITALS: Ht 190.5 cm; Wt 94.2 kg
[2024-02-07] MEDS ORDERED: Morphine 4 MG/ML VIAL IV ONE (23:45)
[2024-02-08] VITALS (13 sets, daily range): BP systolic 99–165; BP diastolic 50–72; PULSE 62–81; TEMP 97.6–98.1
[2024-02-08 00:30] LABS: BASO % 0.2 % (0.0-2.0); EOS # 0.1 K/mm3 (0.0-0.7); EOS % 0.8 % (0.0-4.0); GRAN # 8.1 K/mm3 (1.4-6.5); HEMOGLOBIN 15.7 g/dl (13.5-18.0); LYMPH # 2.2 K/mm3 (1.2-3.4); LYMPH % 18.6 % (20.0-51.0); MEAN CELL VOLUME 92 fl (80.0-100.0); MEAN CORPUSCULAR HEMOGLOBIN 31 pg (27-31); MEAN CORPUSCULAR HGB CONC 33 g/dl (33.0-37.0); MONO # 1.1 K/mm3 (0.1-0.6); MONO % 9.8 % (1.7-9.3); PLATELET COUNT 179 K/mm3 (130-400); REDCELL DISTRIBUTION WIDTH-CV 13.8 % (11.5-14.5)
[2024-02-08 00:35] LABS: BILIRUBIN,TOTAL 0.4 mg/dL (0.2-1.2); CALCIUM 9.9 mg/dL (8.4-10.2); CREATININE, serum 1.26 mg/dL (0.72-1.25); POTASSIUM 3.9 mEq/L (3.5-4.5); TOTAL PROTEIN 7.2 g/dl (6.2-8.1)
[2024-02-08 00:42] LABS: TROPONIN-I 0.019 ng/mL (0.00-0.033)
[2024-02-08] MEDS ORDERED: NS 1,000 ML IV ONE ×2 (00:45→03:00)
[2024-02-08 00:49] LABS: COLLECTION METHOD CLEAN CATCH
[2024-02-08 00:52] LABS: ALBUMIN 3.9 g/dL (3.4-4.8)
[2024-02-08 00:56] LABS: URINE APPEARANCE CLEAR (CLEAR/HAZY); URINE BLOOD NEGATIVE (NEGATIVE); URINE COLOR YELLOW (YELLOW); URINE GLUCOSE 3+ (NEGATIVE); URINE KETONE TRACE (NEGATIVE); URINE NITRATE NEGATIVE (NEGATIVE); URINE PROTEIN(semi-quant) 1+ (NEGATIVE); URINE UROBILINOGEN 0.2 E.U/dL (0.2-1.0)
[2024-02-08] MEDS ORDERED: Morphine 4 MG/ML VIAL IV ONE (01:15)
[2024-02-08 01:16] LABS: SQUAMOUS EPITHELIAL 0-2 /hpf (0-10); URINE BACTERIA RARE /hpf (NONE SEEN); URINE RBC NONE SEEN /hpf (0-2); URINE WBC None Seen /hpf (0-2)
[2024-02-08] MEDS ORDERED: HYDROmorphone 0.5 MG/0.5 ML SYRINGE IV ONE (02:30)
[2024-02-08] MEDS ORDERED: ADVIL200 MG PO (02:43)
[2024-02-08] MEDS ORDERED: CYMBALTA 60MG60 MG PO (02:45)
[2024-02-08] MEDS ORDERED: SOLIQUA 100 UNIT3 ML SQ (02:51)
[2024-02-08] MEDS ORDERED: NS 100 ML IV SCH (02:52)
[2024-02-08] MEDS ORDERED: Iohexol 300 - 100 ML VIAL IV ONE (02:52)
--- NOTE | 2024-02-08 03:27 | NUR ---
REPORT RECIEVED FROM DAVID IN THE ER.
--- NOTE | 2024-02-08 03:45 | NUR ---
MALE PATIENT ARRIVED TO ROOM #314 VIA STRETCHER FROM ER. PATIENT ASSISTED TO BED FROM STRETCHER BY HELPING HIM SCOOT OVER. PATIENT ASSISTED TO REPOSITION IN BED FOR COMFORT. INTIAL INTERVIEW AND INTIAL ASSESSMENT COMPLETED. PATIENT TOLERATED WELL. PATIENT REQUESTED ICE AND WATER. PITCHER OF WATER GIVEN. PATIENT VERBALIZED UNDERSTANDING OF CALL LIGHT AND BED CONTROLS. ALL NEEDS MET. PATIENT STATES PAIN LEVEL IS 4 ON SCALE OF 0 TO 10. BED IN LOW POSITION WITH WHEELS LOCKED WITH RAILS UP X3 AND CALL LIGHT WITHIN REACH. BED ALARM ON.
[2024-02-08] MEDS ORDERED: HYDROmorphone 0.5 MG/0.5 ML SYRINGE IV PRN ×2 (04:00→07:45)
[2024-02-08] MEDS ORDERED: PREDNISONE 5MG5 MG PO (07:05)
[2024-02-08] MEDS ORDERED: DIOVAN 40MG40 MG PO (07:06)
[2024-02-08] MEDS ORDERED: ALA 100MG PO (07:09)
[2024-02-08] MEDS ORDERED: FLOVENT 110MCG7.9 GM IH (07:23)
[2024-02-08] MEDS ORDERED: ATROVENT NASAL15 ML NS (07:24)
[2024-02-08] MEDS ORDERED: Albuterol 0.083% Neb Soln 2.5 MG/3 ML UD IH PRN (07:30)
[2024-02-08] MEDS ORDERED: Meclizine 12.5 MG TAB PO PRN (07:30)
[2024-02-08] MEDS ORDERED: Insulin Lispro (HumaLOG) SQ SCH (08:00)
[2024-02-08] MEDS ORDERED: Empagliflozin 10 MG TAB PO SCH (09:00)
[2024-02-08] MEDS ORDERED: THEOPHYLLINE 600 MG PO SCH (09:00)
[2024-02-08] MEDS ORDERED: THEOPHYLLINE 300 MG PO SCH (09:00)
[2024-02-08] MEDS ORDERED: [UNRECOGNIZED DRUG - REMARK] PO SCH (09:00)
[2024-02-08] MEDS ORDERED: IPRATROPIUM 0.06% NS SCH (09:00)
[2024-02-08] MEDS ORDERED: Furosemide 20 MG TAB PO SCH (09:00)
[2024-02-08] MEDS ORDERED: Losartan 50 MG TAB PO SCH (09:00)
[2024-02-08] MEDS ORDERED: Insulin Glargine-ygfn (Lantus) SQ SCH (09:00)
[2024-02-08] MEDS ORDERED: [UNRECOGNIZED DRUG - OTHER] PO SCH (09:00)
[2024-02-08] MEDS ORDERED: Dapagliflozin 10 MG **** subs to Empagliflozin 10 MG PO SCH (09:00)
[2024-02-08] MEDS ORDERED: DULoxetine 60 MG CAP PO SCH (09:00)
[2024-02-08] MEDS ORDERED: Cetirizine 10 MG TAB PO SCH (09:00)
[2024-02-08] MEDS ORDERED: predniSONE 5 MG TAB PO SCH (09:00)
[2024-02-08] MEDS ORDERED: Cyanocobalamin (Vit B-12) 1,000 MCG TAB PO SCH (09:00)
--- NOTE | 2024-02-08 11:09 | NUR ---
Patient alert and oriented x4. Complains of increased pain this morning 06/13, PRN [place] administered and effective. Requested to get up into recliner, assisted x2 with gait belt to pivot transfer. Patient not steady on feet, required support and noted to struggle. HR regular, lung sounds clear. +3 pitting edema noted to bilateral lower extremities, patient states this is his baseline and they are always red. Tolerating food and fluids well. Orthostatic BPs obtained during PT. Call light within reach, all needs met at this time.
--- NOTE | 2024-02-08 12:33 | NUR ---
Data: Patient declined Steel Fabricator services offered during Steel Fabricator rounds. Assessment: None. Plan of Care: Steel Fabricator did assist with menu/food ordering instructions. Patient thanked Steel Fabricator.
--- NOTE | 2024-02-08 12:56 | NUR ---
Social Work met with patient and his sister in law Yuko ([phone]) at bedside to discuss discharge planning. Patient verifies that he lives in [place] alone, is normally independent with all activities and still drives himself. Patient sees Dr. Hong as his PCP , uses [facility] and has a cane, walker and shower chair for use at home. Patient states he has used [facility] in the past and has been in SNF in the past. Patient states he cannot stand or walk at this time and has an appointment to get an epidural on 02/19. Patient has a technology specialist once a month and has Meals on Wheels and goes out to [facility] with his sister in law daily. Patient open to recommendations for care at discharge. Discharge Plan: TBD pending progress with therapy HH vs SNF
--- NOTE | 2024-02-08 15:16 | NUR ---
Patient remains stable, NS finished infusing and discontinued per orders. Patient urinating frequently. Still requiring x2 assistance with transfers, legs extremely weak. Pain level increased to 8/10, PRN [place] administered. Patient in bed with call light in reach, all needs met at this time.
[2024-02-08] MEDS ORDERED: Budesonide Neb Susp 0.5 MG/2 ML AMP IH SCH (19:00)
[2024-02-08] MEDS ORDERED: [UNRECOGNIZED DRUG - OTHER] IH SCH (19:00)
[2024-02-08] MEDS ORDERED: FLUTICASONE 110 MCG IH SCH (19:00)
[2024-02-08] MEDS ORDERED: Melatonin 3 MG TAB PO SCH (21:00)
[2024-02-08] MEDS ORDERED: rOPINIRole 1 MG TAB PO SCH (21:00)
[2024-02-08] MEDS ORDERED: Montelukast 10 MG TAB PO SCH (21:00)
[2024-02-09] VITALS (10 sets, daily range): BP systolic 121–152; BP diastolic 55–84; PULSE 58–74; TEMP 97.4–98
[2024-02-09] MEDS ORDERED: Menthol Cough/Sore Throat LOZENGE MM PRN (09:00)
--- NOTE | 2024-02-09 10:08 | NUR ---
PATIENT SITTING UP IN RECLINER UPON ENTERING ROOM. MORNING MEDICATIONS ADMINISTERED. SHIFT ASSESSMENT COMPLETED. PATIENT COMPLAINS OF PAIN TO LLE. THIS RN NOTED BLE TO BE RED, WARM, AND SWOLLEN. LIZETH GRIDER NOTIFIED. DENIES ANY ADDITONAL NEEDS AT THIS TIME. PRODUCING THICK SPUTUM. CALL LIGHT WITHIN REACH. WILL CONTINUE TO MONITOR.
--- NOTE | 2024-02-09 10:29 | NUR ---
SW met with patient and his sister in law to discuss recommendations for rehab at discharge. Patient agreeable. Patient referred to [facility]. SW left Medicare.gov list of area SNFs for patient's review. [facility] notified of referral. Discharge plan: [facility] vs SNF
[2024-02-10] VITALS (10 sets, daily range): BP systolic 109–148; BP diastolic 60–82; PULSE 55–85; TEMP 97.7–98.4
[2024-02-10 07:07] LABS: BASO % 0.1 % (0.0-2.0); EOS # 0.2 K/mm3 (0.0-0.7); EOS % 1.7 % (0.0-4.0); GRAN # 5.9 K/mm3 (1.4-6.5); GRAN % 66.5 % (42.2-75.2); HEMATOCRIT 48.4 % (42.0-52.0); HEMOGLOBIN 16.1 g/dl (13.5-18.0); LYMPH # 1.7 K/mm3 (1.2-3.4); LYMPH % 19.5 % (20.0-51.0); MEAN CELL VOLUME 91 fl (80.0-100.0); MEAN CORPUSCULAR HEMOGLOBIN 30 pg (27-31); MEAN CORPUSCULAR HGB CONC 33 g/dl (33.0-37.0); MEAN PLATELET VOLUME 12.1 fl (7.4-10.4); MONO # 1.1 K/mm3 (0.1-0.6); MONO % 11.9 % (1.7-9.3); PLATELET COUNT 211 K/mm3 (130-400); RED BLOOD COUNT 5.32 M/mm3 (4.20-5.60)
[2024-02-10 07:17] LABS: CALCIUM 9.8 mg/dL (8.4-10.2); CREATININE, serum 1.19 mg/dL (0.72-1.25); POTASSIUM 3.3 mEq/L (3.5-4.5)
[2024-02-10] MEDS ORDERED: *Potassium Replacement Protocol MC SCH (07:45)
[2024-02-10] MEDS ORDERED: Potassium Bicarbonate/Citrate 20 MEQ Effervescent TAB PO SCH (08:00)
--- NOTE | 2024-02-10 09:30 | NUR ---
PATIENT SITTING UP IN RECLINER UPON ENTERING ROOM. MORNING MEDICATIONS ADMINISTERED. SHIFT ASSESSMENT COMPLETED. PATIENT COMPLAINING OF GENERALIZED PAIN AND LLE PAIN, PRN MEDICATION GIVEN PER eMAR. PATIENT IS HAVING FREQUENT SOFT FORMED STOOLS, LACK OF APPETITE, AND AN UPSET STOMACH. LIZETH GRIDER NOTIFIED AND INSRUCTED TO TRY ZOFRAN. CALL LIGHT WITHIN REACH, CHAIR ALARMS IN PLACE. WILL CONTINUE TO MONITOR.
--- NOTE | 2024-02-10 09:56 | NUR ---
Initial visit; Patient thanked Steam Fitter Helper for looking in on him this morning and asked Steam Fitter Helper if she would pray for him. Steam Fitter Helper offered prayer which Pop found to be a nice prayer and thanked Steam Fitter Helper for coming in and wishing him well.
[2024-02-10] MEDS ORDERED: Ondansetron 4 MG/2 ML VIAL IV PRN (10:30)
--- NOTE | 2024-02-10 12:55 | NUR ---
tar pot worker attended clinical rounding and was informed pt can discharge today. JUSTICE met with patient who prefers [facility] for his first choice, then [facility], [facility], and [facility] for SNF. Pt was aware of private pay for SNF due to being in Observation status. He was agreeable to this, but preferred [facility] due to this. JUSTICE spoke with [facility] and was informed they could accept, but are pending pre-admission paperwork. JUSTICE was informed [facility] could accept pt at $308 a day. [facility] can accept pt. [facility] will follow if [facility] declines. Discharge Plan: [facility] pending admission paperwork
--- NOTE | 2024-02-10 16:25 | NUR ---
REPORT CALLED TO BECKI US ON [facility]. ALL QUESTIONS ANSWERED. IV REMOVED. PATIENT ESCORTED OFF OF UNIT BY [facility]IA [facility] STAFF WITH PERSONAL BELONGINGS.
[2024-02-10] MEDS ORDERED: LANTUS100 U/ML SQ (18:49)
== END 2024-02-10 16:27 ==
LOC: COL.ER 23:21 → MEDICAL 02-08 03:00
PROVIDERS: Nurse Practitioner; Physician Assistant; ADMIT Internal Medicine
DX: M51.16 Intervertebral disc disorders with radiculopathy, lumbar region (principal); G62.9 Polyneuropathy, unspecified; M48.061 Spinal stenosis, lumbar region without neurogenic claudication; D72.829 Elevated white blood cell count, unspecified; R74.02 Elevation of levels of lactic acid dehydrogenase [LDH]; R55 Syncope and collapse; E78.5 Hyperlipidemia, unspecified; I25.10 Atherosclerotic heart disease of native coronary artery without angina pectoris; I50.30 Unspecified diastolic (congestive) heart failure; N18.9 Chronic kidney disease, unspecified; J45.909 Unspecified asthma, uncomplicated; I13.0 Hypertensive heart and chronic kidney disease with heart failure and stage 1 through stage 4 chronic kidney disease, or unspecified chronic kidney disease; K21.9 Gastro-esophageal reflux disease without esophagitis; E11.51 Type 2 diabetes mellitus with diabetic peripheral angiopathy without gangrene; E11.22 Type 2 diabetes mellitus with diabetic chronic kidney disease; G25.81 Restless legs syndrome; Z79.84 Long term (current) use of oral hypoglycemic drugs; Z79.4 Long term (current) use of insulin; Z87.891 Personal history of nicotine dependence
CPT/HCPCS: A9270; G0378; J1170; J1650; J1815; J2270; J2405; J7030; J7512; Q9967

== ENCOUNTER → 2024-02-20 | Outpatient (CLI) | payer MEDICARE, OTHER ==
[~2024-02-20] MED LIST changes: +ALA 100MG PO; +ATROVENT NASAL15 ML NS; +CYMBALTA 60MG60 MG PO; +Iohexol 300 - 10 ML VIAL ONE; +LANTUS100 U/ML SQ; +LYRICA 150MG C150 MG PO; +Lidocaine PF 2% (20 MG/ML) 2 ML VIAL ONE; +SOLIQUA 100 UNIT3 ML SQ
== END ==
LOC: MHCPAIN 08:12
DX: M54.16 Radiculopathy, lumbar region (principal); M53.3 Sacrococcygeal disorders, not elsewhere classified; G89.29 Other chronic pain
CPT/HCPCS: J1100; Q9967

== ENCOUNTER → 2024-03-03 | Outpatient (CLI) | payer MEDICARE, OTHER ==
[~2024-03-03] MED LIST changes: -Iohexol 300 - 10 ML VIAL ONE; -Lidocaine PF 2% (20 MG/ML) 2 ML VIAL ONE
== END ==
LOC: COL.RAD 11:42
DX: M51.16 Intervertebral disc disorders with radiculopathy, lumbar region (principal)

== ENCOUNTER → 2024-03-03 | Outpatient (CLI) | payer MEDICARE, OTHER | LOC: MHCPAIN 10:31 | DX: M54.50 Low back pain, unspecified (principal); M53.3 Sacrococcygeal disorders, not elsewhere classified; E11.40 Type 2 diabetes mellitus with diabetic neuropathy, unspecified | CPT/HCPCS: G0463 ==

== ENCOUNTER → 2024-04-29 | Outpatient (CLI) | payer MEDICARE, OTHER | LOC: MHCPAIN 11:12 | DX: M71.38 Other bursal cyst, other site (principal); M47.816 Spondylosis without myelopathy or radiculopathy, lumbar region; M48.061 Spinal stenosis, lumbar region without neurogenic claudication | CPT/HCPCS: G0463 ==

== ENCOUNTER → 2024-05-26 | Outpatient (CLI) | payer MEDICARE, OTHER | LOC: MHCPAIN 11:01 | DX: M51.26 Other intervertebral disc displacement, lumbar region (principal); M47.816 Spondylosis without myelopathy or radiculopathy, lumbar region; M48.061 Spinal stenosis, lumbar region without neurogenic claudication; G96.191 Perineural cyst | CPT/HCPCS: G0463 ==

== ENCOUNTER → 2024-06-03 | Outpatient (RCR) | payer SELFPAY ==
[~2024-06-03] MED LIST changes: +BREZTRI AEROS10.7 GM; +CELEBREX 1100 MG/CAP PO; +MIRALAX PA17 GM/Dose PO; +MOTRIN 200200 MG/TAB PO; +ROXICODONE 55 MG/TAB PO; +TYLENOL 325MG325 MG PO; +VITAMIN D 400400 IU PO; +ZANAFLEX 4MG TAB4 MG PO
== END | disposition home or self-care (01) ==
LOC: MKS.ESL.PT
DX: G62.9 Polyneuropathy, unspecified (principal); E13.40 Other specified diabetes mellitus with diabetic neuropathy, unspecified; M79.89 Other specified soft tissue disorders; Z79.4 Long term (current) use of insulin

== ENCOUNTER 2024-06-26 10:45 | Inpatient (IN) | payer MEDICARE, OTHER ==
[~2024-06-26] VITALS: Ht 182.9 cm; Wt 85.5 kg
[~2024-06-26 10:45] MED LIST changes: -BREZTRI AEROS10.7 GM; -CELEBREX 1100 MG/CAP PO; -MIRALAX PA17 GM/Dose PO; -MOTRIN 200200 MG/TAB PO; -ROXICODONE 55 MG/TAB PO; -TYLENOL 325MG325 MG PO; -VITAMIN D 400400 IU PO; -ZANAFLEX 4MG TAB4 MG PO
[2024-06-26] MEDS ORDERED: Acetaminophen 325 MG TAB PO PRN (13:00)
[2024-06-26] MEDS ORDERED: Docusate Sodium 100 MG CAP PO PRN (13:00)
[2024-06-26] MEDS ORDERED: Polyethylene Glycol 3350 17 GM PDS PO PRN (13:00)
[2024-06-26] MEDS ORDERED: Naloxone 0.4 MG/ML VIAL IV PRN (13:00)
[2024-06-26] MEDS ORDERED: Sennosides/Docusate 8.6-50 MG TAB PO PRN (13:00)
[2024-06-26] MEDS ORDERED: REQUIP2 MG PO (13:28)
[2024-06-26] MEDS ORDERED: BREZTRI AEROS10.7 GM (13:35)
[2024-06-26] MEDS ORDERED: CELEBREX 1100 MG/CAP PO (13:36)
[2024-06-26] MEDS ORDERED: LYRICA 150MG C150 MG PO (13:59)
[2024-06-26] MEDS ORDERED: rOPINIRole 1 MG TAB PO SCH ×2 (14:15→21:00)
[2024-06-26] MEDS ORDERED: Meclizine 12.5 MG TAB PO PRN (14:15)
[2024-06-26] MEDS ORDERED: oxyCODONE 5 MG TAB PO PRN (14:15)
[2024-06-26] MEDS ORDERED: Albuterol 0.083% Neb Soln 2.5 MG/3 ML UD IH PRN (14:15)
[2024-06-26] MEDS ORDERED: tiZANidine 4 MG TAB PO PRN (14:15)
[2024-06-26] MEDS ORDERED: MOTRIN 200200 MG/TAB PO (15:02)
[2024-06-26] MEDS ORDERED: MAG-OX 400400 MG/TAB PO (15:04)
[2024-06-26] MEDS ORDERED: MIRALAX PA17 GM/Dose PO (15:05)
[2024-06-26] MEDS ORDERED: SOLIQUA 100 UNIT3 ML SQ (15:09)
[2024-06-26] MEDS ORDERED: VITAMIN D 400400 IU PO (15:12)
[2024-06-26] MEDS ORDERED: NATURAL E400 IU PO (15:13)
[2024-06-26 15:15] VITALS: BP 119/82; PULSE 58; TEMP 98.1
[2024-06-26] MEDS ORDERED: Dextrose 50% Water 25 GM/50 ML SYRINGE IV PRN (17:00)
[2024-06-26] MEDS ORDERED: Glucagon 1 MG VIAL IM PRN (17:00)
[2024-06-26] MEDS ORDERED: Dextrose (Glucose) 15 GM (4 x 3.75 GM) Chewable TABLET PACK PO PRN (17:00)
[2024-06-26] MEDS ORDERED: Insulin Lispro (HumaLOG) SQ SCH (17:00)
[2024-06-26 17:26] VITALS: BP 143/81; PULSE 78; TEMP 98.6
[2024-06-26] MEDS ORDERED: Budesonide Neb Susp 0.5 MG/2 ML AMP IH SCH (19:00)
--- NOTE | 2024-06-26 20:15 | NUR ---
Pt. resting in recliner w/ eyes closed upon entry. Administered scheduled meds per JAN. Shift assessment complete. Pt. is oriented to self but disoriented. Pt. is agreeable when trying to reorient but remains disoriented. Unable to fully reorient pt at this time. Pt. has flat affect. Although pt is able to follow directions, he requires multiple request before complying. Pt. has bruising and dime-sized abrasion to L forearm. Gluteal cleft is reddened, but blanchable. BLE are blue/purple in coloring and pt. denies sensation in feet. However, pt. is able to move SANTOS feet and toes. Pedal pulses are weak, but present. Pt has incision to medial lower back. Edges well approximated. No further outstanding findings. Pt. denies pain at this time. Assisted pt. to restroom. Pt. ambulates w/ X1 assist, walker, and gait belt. Gait is stooped and shuffling. Pt. is voiding clear yellow urine. Pt. returned to recliner. No complaints or requests at this time. Call light in reach and chair alarm activated.
[2024-06-26] MEDS ORDERED: Cetirizine 10 MG TAB PO SCH (21:00)
[2024-06-26] MEDS ORDERED: Pregabalin 150 MG CAP PO SCH (21:00)
[2024-06-26] MEDS ORDERED: Montelukast 10 MG TAB PO SCH (21:00)
[2024-06-26] MEDS ORDERED: Atorvastatin 80 MG TAB PO SCH (21:00)
[2024-06-26] MEDS ORDERED: Sennosides/Docusate 8.6-50 MG TAB PO SCH (21:00)
[2024-06-26] MEDS ORDERED: [UNRECOGNIZED DRUG - REMARK] PO SCH (21:00)
[2024-06-26] MEDS ORDERED: metFORMIN XR 500 MG TAB PO SCH (21:00)
[2024-06-26] MEDS ORDERED: Melatonin 3 MG TAB PO SCH (21:00)
--- NOTE | 2024-06-27 03:30 | NUR ---
Assisted pt. to restroom. Pt. is much more oriented than earlier in the shift, answering all orientation questions correctly. Gait is still stooped but stronger than earlier in the shift.
[2024-06-27 05:05] VITALS: BP 130/86; PULSE 76; TEMP 98.3
--- NOTE | 2024-06-27 06:13 | NUR ---
Pt. c/o soreness to bottom and requested application of aquaphor from home. Pt. also inquiring about chair cushion from home. Ointment applied, cushion located and placed underneath pt. Assisted pt. w/ repositions. Scheduled meds administered per JAN. Pt. is A&O x4 this morning. He appears much more energetic than at the beginning of the shift. Pt. resting in recliner w/ call light in reach.
[2024-06-27 07:00] VITALS: BP_SYST 130
[2024-06-27] MEDS ORDERED: Theophylline ER (24-HR) 300 MG TAB-CAP PO SCH (07:00)
[2024-06-27] MEDS ORDERED: Insulin Glargine-ygfn (Lantus) SQ SCH (08:00)
[2024-06-27] MEDS ORDERED: Budesonide/Glycopyrrolate/Formoterol **** subs to Budesonide + Umeclid/Vilant IH SCH (09:00)
[2024-06-27] MEDS ORDERED: SUBS TO LOSARTAN PO SCH (09:00)
[2024-06-27] MEDS ORDERED: Empagliflozin 10 MG TAB PO SCH (09:00)
[2024-06-27] MEDS ORDERED: VALSARTAN 40 MG PO SCH (09:00)
[2024-06-27] MEDS ORDERED: DULoxetine 60 MG CAP PO SCH (09:00)
[2024-06-27] MEDS ORDERED: Cyanocobalamin (Vit B-12) 1,000 MCG TAB PO SCH (09:00)
[2024-06-27] MEDS ORDERED: Losartan 25 MG TAB PO SCH (09:00)
[2024-06-27] MEDS ORDERED: Furosemide 20 MG TAB PO SCH (09:00)
[2024-06-27] MEDS ORDERED: Umeclidinium/Vilanterol 62.5-25 MCG INHALATION/INHALER IH SCH (09:00)
[2024-06-27] MEDS ORDERED: Celecoxib 100 MG CAP PO SCH (09:00)
[2024-06-27] MEDS ORDERED: Polyethylene Glycol 3350 17 GM PDS PO SCH (09:00)
[2024-06-27] MEDS ORDERED: Dapagliflozin 10 MG **** subs to Empagliflozin 10 MG PO SCH (09:00)
[2024-06-27] MEDS ORDERED: predniSONE 5 MG TAB PO SCH (09:00)
[2024-06-27] MEDS ORDERED: [UNRECOGNIZED DRUG - REMARK] PO SCH (09:00)
--- NOTE | 2024-06-27 09:37 | NUR ---
SW met with patient to complete intake. Patient provides he lives in [facility] alone. Next of kin/DPOA-HC is sister in law Rosa M [phone]. Patient provides he utilizes a walker to assist with mobility, is independent with ADLs, and does not utilize any home health services at this time. Patient does provide he has a clearning services that comes (arnol [facility]resp[facility]). PCP is Dr. Hong, and pharmacy is [facility]. Patient provides his plan post discharge is returning to his home. SW will continue to follow. Discharge plan: home (TBD with further assessment)
--- NOTE | 2024-06-27 09:48 | NUR ---
PATIENT A&O X4. CURRENTLY UP IN CHAIR EATING BREAKFAST. NO C/O PAIN OR N/V. PATIENT IS ASSIST X1 WITH WALKER AND GAIT BELT. TOLERATING ADA DIET WELL. SHIFT ASSESSMENT COMPLETE AND MORNING MEDICATIONS ADMINISTERED. PRN STOOL SOFTENER GIVEN. DATE OF LAST BM UNKNOWN.
--- NOTE | 2024-06-27 14:19 | NUR ---
Data: Patient accepted spiritual care visit offered during Life Science Technical Officer rounds. During discussion, Patient noted that he does not attend lutheran any longer. He is . This hospital stay provides an atmosphere which allows Patient to be reflective. Assessment: Reflective on life; lutheran; and where he is in his grief process. Plan of Care: Life Science Technical Officer provided supportive listening and prayer. Chaplains will remain available as needed/requested while Patient is admitted to this hospital.
[2024-06-27] MEDS ORDERED: Polyethylene Glycol 3350 17 GM PDS PO PRN (15:16)
[2024-06-27 16:42] VITALS: BP 112/53; PULSE 64; TEMP 98.3
[2024-06-27 19:33] VITALS: BP_SYST 112
--- NOTE | 2024-06-27 19:51 | NUR ---
PATIENT ALERT AND ORIENTED X3 WITH INTERMITTENT CONFUSION. PATIENT DENIES ANY PAIN AT THIS TIME. INCISION TO LOW BACK, NO DRESSING, EDGES WELL APPROXIMATED. PM MEDS ADMINISTERED. PATIENT RESTING IN CHAIR WITH ALARM ON. PATIENT REFUSING TO GET IN BED, REPORTS THAT HE WILL CALL WHEN READY TO GET INTO BED. CALL LIGHT IN REACH.
[2024-06-28 06:00] VITALS: BP 129/82; PULSE 91; TEMP 97.8
[2024-06-28 07:00] VITALS: BP_SYST 129
--- NOTE | 2024-06-28 08:00 | NUR ---
Pt A&Ox4. C/o pain to lower back and requested prn pain medications. No c/o n/v. Patient currently eating breakfast. Pt ambulates w/ assist x1 with walker and gait belt. Shift assessment complete and medications administered. Incision to lower back is open to air. Edges well approximated. No further needs at this time. Call light within reach. TEDs on .
[2024-06-28] MEDS ORDERED: predniSONE 10 MG TAB PO SCH (09:00)
[2024-06-28 17:30] VITALS: BP 107/60; PULSE 62; TEMP 98.2
[2024-06-28 19:32] VITALS: BP_SYST 107
--- NOTE | 2024-06-28 19:33 | NUR ---
RECEIVED CHANGE OF SHIFT REPORT FROM DAY SHIFT NURSE. PATIENT UP IN CHAIR, DENIES ANY NEEDS AT TIME OF REPORT. EXIT ALARM WHILE UP IN CHAIR.
--- NOTE | 2024-06-28 20:00 | NUR ---
DECREASED ROM/STRENGTH TO BACK RELATED TO SURGERY. REPORTS STILL HAND NUMBNESS/TINGLING TO BLE BEFORE SURGERY THAT CONTINUES. DENIES CHEST PAIN/SHORTNESS OF BREATH/NAUSEA AT THIS TIME.
[2024-06-28 20:30] VITALS: BP 125/56; PULSE 69; TEMP 97.5
--- NOTE | 2024-06-28 21:13 | NUR ---
REQUESTED AND GIVEN PAIN MEDS FOR BACK PAIN, SEE MAR.
--- NOTE | 2024-06-28 23:49 | NUR ---
RESTING IN BED WITH EYES CLOSED, DOES NOT WAKE DURING NURSING ROUNDS. EXIT ALARM ON WITH CALL LIGHT WITHIN REACH.
[2024-06-29 05:57] VITALS: BP 128/62; PULSE 64; TEMP 98
[2024-06-29 07:00] VITALS: BP_SYST 128
--- NOTE | 2024-06-29 07:05 | NUR ---
CHANGE OF SHIFT REPORT GIVEN TO DAY SHIFT NURSEBLAYNE.
--- NOTE | 2024-06-29 08:00 | NUR ---
Patient A&Ox4. VSS. Pt eating breakfast currently. No c/o pain or n/v. Pt up with gait belt and walker. Pt in good mood this morning. Shift assessment complete and morning medications administered. Pt requested staff do laundry d/t family not able to do it. OT planning on taking care of it today. No further needs at this time. Call light within reach.
[2024-06-29] MEDS ORDERED: Sennosides/Docusate 8.6-50 MG TAB PO PRN (12:25)
--- NOTE | 2024-06-29 14:12 | NUR ---
Admission QIM scores were reviewed by the team. Code of 6 chosen for eating was determined by team discussion to be the most usual performance before interventions for this patient during the assessment period. Code of 6 chosen for oral hygiene was determined by team discussion to be the most usual performance before interventions for this patient during the assessment period.--Olivia Vasquez, PD
--- NOTE | 2024-06-29 16:44 | NUR ---
community health outreach worker contacted patient's sister in law, Stefanie, whom expressed she was currently in the hospital as well. Stefanie expressed she believes she will be discharged tomorrow. JUSTICE explained the [facility] team was wanting to have a family meeting on Saturday either at 1015 or 1030. Stefanie stated 1030 would work for her. JUSTICE scheduled the family meeting for 1030 am on Saturday07/01/24. JUSTICE notified Olivia, [facility] director. SW met with patient and introduced herself. SW explained they were going to have a family meeting on Saturday at 1030 am. Patient understood and has no questions or concerns. SW left her contact information if patient needs any assistance or has any questions.
[2024-06-29 18:07] VITALS: BP 128/75; PULSE 57; TEMP 97.3
[2024-06-29 19:00] VITALS: BP_SYST 128
[2024-06-30 05:23] VITALS: BP 126/76; PULSE 60; TEMP 98.1
--- NOTE | 2024-06-30 05:52 | NUR ---
PT REPORTS HAVING TWO LOOSE STOOLS THIS PM SHIFT. STATES HAS BEEN GOING ON OFF AND ON FOR A FEW WEEKS. WANTS TO TALK TO MD ABOUT THIS, WILL PASS ALONG IN REPORT WELL. SOME NOTED REDNESS TO BUTTOCKS AFTER LAST STOOL THIS AM, ASSISTED PT TO PUT BARRIER CREAM ON. SKIN IS INTACT.
[2024-06-30 06:49] VITALS: BP_SYST 126
[2024-06-30 07:49] LABS: BASO % 0.2 % (0.0-2.0); EOS # 0.3 K/mm3 (0.0-0.7); EOS % 3.1 % (0.0-4.0); GRAN # 4.6 K/mm3 (1.4-6.5); GRAN % 57.2 % (42.2-75.2); HEMATOCRIT 43.7 % (42.0-52.0); HEMOGLOBIN 14.3 g/dl (13.5-18.0); LYMPH # 2.4 K/mm3 (1.2-3.4); LYMPH % 29.3 % (20.0-51.0); MEAN CELL VOLUME 95 fl (80.0-100.0); MEAN CORPUSCULAR HEMOGLOBIN 31 pg (27-31); MEAN CORPUSCULAR HGB CONC 33 g/dl (33.0-37.0); MEAN PLATELET VOLUME 10.9 fl (7.4-10.4); MONO # 0.8 K/mm3 (0.1-0.6); MONO % 9.7 % (1.7-9.3); PLATELET COUNT 225 K/mm3 (130-400); RED BLOOD COUNT 4.61 M/mm3 (4.20-5.60); REDCELL DISTRIBUTION WIDTH-CV 13.2 % (11.5-14.5)
[2024-06-30 08:12] LABS: CALCIUM 9.9 mg/dL (8.4-10.2); CREATININE, serum 1.14 mg/dL (0.72-1.25); POTASSIUM 3.6 mEq/L (3.5-4.5)
--- NOTE | 2024-06-30 09:25 | NUR ---
PATIENT ALERT AND ORIENTED X3 WITH INTERMITTENT CONFUSION. AM MEDS ADMINISTERED. PATIENT WAITING IN CHAIR FOR BREAKFAST. NO FURTHER NEEDS. CALL LIGHT IN REACH. CHAIR ALARM ON.
[2024-06-30] MEDS ORDERED: Loperamide 2 MG CAP PO PRN (10:45)
[2024-06-30 17:18] VITALS: BP 120/55; PULSE 57; TEMP 98.7
[2024-06-30 19:30] VITALS: BP_SYST 120
--- NOTE | 2024-06-30 19:31 | NUR ---
RECEIVED CHANGE OF SHIFT REPORT FROM DAY SHIFT NURSE.
--- NOTE | 2024-07-01 01:00 | NUR ---
PATIENT PASSED LOOSE STOOLS THAT WAS OBSERVED BY NURSING X1. PATIENT DENIES CHEST PAIN/SHORTNESS OF BREATH/NAUSEA. EXIT ALARMS ON WHEN UP IN THE CHAIR OR LAYING IN BED. CALL LIGHT WITHIN PATIENT'S REACH DURING THE NIGHT.
[2024-07-01 05:48] VITALS: BP 164/75; PULSE 62; TEMP 97.5
[2024-07-01 06:48] VITALS: BP_SYST 164
--- NOTE | 2024-07-01 07:20 | NUR ---
CHANGE OF SHIFT REPORT GIVEN TO DAY SHIFT NURSE
--- NOTE | 2024-07-01 11:28 | NUR ---
PATIENT ALERT AND ORIENTE X3 WITH INTERMITTENT CONFUSION. PATIENT REPORTS MILD PAIN THIS AM, BUT DENIES NEED FOR PAIN MEDICATION. AM MEDS ADMINISTERED. PATIENT EATING BREAKFAST IN BED WAITING ON THERAPY. NO FURTHER NEEDS. CALL LIGHT IN REACH. BED ALARM ON.
--- NOTE | 2024-07-01 17:57 | NUR ---
railroad worker attended [facility] team conference. Patient has made improvement and is scheduled for discharge on Saturday07/08/24. Home health is recommended for PT/OT and nursing. SW attended family meeting with patient, [facility] team and patient's sister in law, Stefanie. Patient is agreeable to home health. SW will follow up with options later. SW met with patient and reviewed the notes from the meeting that morning. SW provided a copy of the team conference notes. SW provided the Medicare.gov list of home health options. SW explained she would follow up tomorrow on patient's choice, patient stated that would be good. Discharge plan: Home with home health
[2024-07-01 18:16] VITALS: BP 123/67; PULSE 54; TEMP 97.8
[2024-07-01 19:10] VITALS: BP_SYST 123
[2024-07-01] MEDS ORDERED: Pregabalin 75 MG CAP PO SCH (21:00)
--- NOTE | 2024-07-01 23:14 | NUR ---
ASSESSMENT COMPLETED EARLIER. MEDICATIONS ADMINISTERED PER EMAR. PT TOILETED AND HAD TWO LARGE LIQUID BOWEL MOVEMENTS. ALL CLOTHES WERE FOLDED AND PUT INTO CLOSET. PT CHOSE OUTFIT OUT FOR THE AM. AFTER ADL WERE COMPLETED HE WAS ABULATED TO BED. HE HAS HIS BLACK CUSHION UNDERNEATH HIS BOTTOM. HE IS NOW LAYING IN BED WATCHING TV. HE HAS NO CONCERNS AT THIS TIME. HIS CALL LIGHT IS WITHIN REACH. BED IN LOWEST POSITION WITH BED ALARM ON.
--- NOTE | 2024-07-02 01:40 | NUR ---
PT SITTING UP IN CHAIR AFTER PASSING ANOTHER LARGE LIQUID STOOL- HE HAS PASSED X4 THIS SHIFT. NO COMPLAINTS OF STOMACH PAINS. PT ASKED FOR ANOTHER IMODIUM FOR HIS STOOL-ADMINISTERED PER EMAR. OFFERED TO HELP HIM BACK TO BED. PT REFUSED STATES "HE CANNOT GET COMFORTABLE". THIS NURSE ASKED THE PT IF THERE WAS ANYTHING TO HELP HIM FALL ASLEEP, DENIES ANYTHING AT THIS TIME. PT HAS HIS CALL LIGHT IN REACH AND HIS CHAIR ALARM IS ON.
[2024-07-02 05:06] VITALS: BP 124/72; PULSE 66; TEMP 98
[2024-07-02 07:00] VITALS: BP_SYST 124
--- NOTE | 2024-07-02 08:00 | NUR ---
PT A&OX4. UP IN CHAIR EATING BREAKFAST. VSS. NO C/O PAIN OR N/V AT THIS TIME. PATIENT IS ASSIST X1 WITH WALKER AND GAIT BELT. SHIFT ASSESSMENT COMPLETE AND MORNING MEDICATIONS ADMINISTERED. NO FURTHER NEEDS AT THIS TIME. CALL LIGHT WITHIN REACH.
--- NOTE | 2024-07-02 08:00 | NUR ---
PT A&OX4. VSS. PT ON OXYGEN VIA NC. NO C/O PAIN OR N/V. WOUND CARE NURSE IN TO SEE PT. NEW ORDERS FOR SKIN ISSUES. MEPILEX TO MIDBACK COVERING INCISIONS. PT IS ASSIST X2 WITH SIT TO STAND. PT EATING BREAKFAST. NO FURTHER NEEDS AT THIS TIME. CALL LIGHT WITHIN REACH.
--- NOTE | 2024-07-02 14:29 | NUR ---
structural iron worker was notified patient wanted [facility] for home health services. SW faxed referral to [facility]. Discharge plan: Home with home health
[2024-07-02 16:37] VITALS: BP 116/84; PULSE 74; TEMP 97.9
[2024-07-02 19:00] VITALS: BP_SYST 116
--- NOTE | 2024-07-03 02:12 | NUR ---
Patient called c/o pain to left shoulder, rating pain 7/10 on pain scale-described as ache. Oxycodone given per dr order. Will monitor.
--- NOTE | 2024-07-03 04:09 | NUR ---
Patient requesting to get up for the morning. Assisted up to chair-stand by/walker/gait belt. Electric razor given per request. Will monitor.
[2024-07-03 05:23] VITALS: BP 116/56; PULSE 61; TEMP 98.3
--- NOTE | 2024-07-03 06:00 | NUR ---
Patient had an uneventful night. Received oxycodone x2 for pain in left shoulder. Has been up in chair since 0. Did have two episodes of loose stools. VS remained stable. Blood sugars stable. Ambulated well with stand by assist/walker/gait belt. Denies current questions/concerns. Call light in reach. Will monitor.
[2024-07-03 07:02] VITALS: BP_SYST 116
--- NOTE | 2024-07-03 12:23 | NUR ---
target worker secure emailed udpates to [facility] and notified them of upcoming discharge date. Discharge plan: Home with Home health
[2024-07-03 18:02] LABS: CLOSTRIDIUM DIFF A/B NEG
[2024-07-03 18:21] VITALS: BP 123/68; PULSE 58; TEMP 97.6
[2024-07-03 19:00] VITALS: BP_SYST 123
[2024-07-03] MEDS ORDERED: Pregabalin 50 MG CAP PO SCH (21:00)
--- NOTE | 2024-07-03 21:45 | NUR ---
Assisted pt to restroom. Gait is steady w/ walker, gait belt, and stand by assist. Pt. voiding clear yellow urine. Scheduled meds administered per JAN. Pt. c/o 06/13 shoulder pain. PRN Roxycodone administered per JAN. Shift assessment complete. Pt. is A&O x4. Bowel sounds are audible in all quadrants and pt reports loose stools since yesterday. Pt. has incision to lower back that is open to air- edges well approximated. Gluteal cleft is reddenned. Pt. uses chair pad from home to reduce pressure BLE are blue/purple in coloring and cool to touch. Pt. reports he has little sensation in both feet. However SANTOS pedal pulses are present and pt. is able to move toes. No further outstanding findings. Pt. in recliner w/ chair alarm active and call light in reach.
--- NOTE | 2024-07-03 23:00 | NUR ---
Assisted pt. w/ dressing. Pt. able to dress himself completely w/ standby assist.
[2024-07-04 05:32] VITALS: BP 147/82; PULSE 50; TEMP 97.8
--- NOTE | 2024-07-04 05:46 | NUR ---
Pt. had fairly uneventful evening. C/o pain early in the shift subsided. Pt. ambulating well w/ walker, gait belt, and stand by assist. Pt. denies complaints or requests this morning.
[2024-07-04 07:01] VITALS: BP_SYST 147
--- NOTE | 2024-07-04 09:32 | NUR ---
PT RESTING IN BED, ALERT AND ORIENTEDX4. RATES PAIN 7/10 IN THE LEFT SHOULDER. PT REQUESTED PAIN MEDS. PT ALSO REQUESTED IMODIUM FOR LOOSE STOOLS. ASSESSED PT. NO OTHER COMPLAINTS AT THIS TIME. CALL LIGHT WITHIN REACH
[2024-07-04 17:28] VITALS: BP 125/76; PULSE 65; TEMP 97.4
[2024-07-04 19:00] VITALS: BP_SYST 125
--- NOTE | 2024-07-04 21:00 | NUR ---
Assisted pt. from restroom. Gait steady w/ walker, gait belt, and standby assist. Pt. reports BM. Pt. c/o 05/13 shoulder pain. PRN roxycodone and scheduled meds administered per JAN. Shift assessment complete. No outstanding findings since previous NOC shift w/ pt. Redness to gluteal cleft is improved. No further complaints or requests at this time.
--- NOTE | 2024-07-05 04:59 | NUR ---
Pt. had two episodes of pain requiring analgesia as ordered. Pain subsided with treatment. Otherwise, pt denied request or complaints through the night. Pt. continues to ambulate well w/ walker, gait belt, and standby assist. Pt currently resting in bed w/ call light in reach and fall precautions in place.
[2024-07-05 05:48] VITALS: BP 99/61; PULSE 67; TEMP 98.1
[2024-07-05 09:56] VITALS: BP 110/53; PULSE 74; TEMP 98.4
--- NOTE | 2024-07-05 10:51 | NUR ---
JUSTICE faxed updates to [facility]. Discharge Plan: home with HH
[2024-07-05 17:47] VITALS: BP 115/71; PULSE 64; TEMP 97.6
[2024-07-05 19:05] VITALS: BP_SYST 115
[2024-07-06 05:22] VITALS: BP 129/54; PULSE 66; TEMP 97.9
[2024-07-06 06:45] VITALS: BP_SYST 129
--- NOTE | 2024-07-06 09:47 | NUR ---
PATIENT ALERT AND ORIENTED X3 WITH INTERMITTENT CONFUSION. PATIENT REPORTS MILD PAIN, REQUESTS PAIN MEDICATION. AM MEDS ADMINISTERED. PATIENT IN BED, EATING BREAKFAST, WAITING ON THERAPY TO ARRIVE. NO FURTHER NEEDS. CALL LIGHT IN REACH. BED ALARM ON.
--- NOTE | 2024-07-06 15:03 | NUR ---
day care worker secure emailed updates to [facility]. Discharge plan: Home with [facility] - discharge date 07/08
[2024-07-06 16:35] VITALS: BP 108/58; PULSE 93; TEMP 97.4
[2024-07-06 18:52] VITALS: BP_SYST 108
--- NOTE | 2024-07-06 20:30 | NUR ---
Assessment complete. A&Ox4-forgetful. VS stable. Up to bathroom at this time stand by asisst/gait belt/walker-steady gait. Small loose stool. Rating pain 7/10 on pain scale to back/neck. Oxycodone given per dr order. Lower back incision-edges well approximated-no drainage/redness noted. Plan of care discussed for this shift to include meds/pain control/calling for questions/concerns. Verbalizes understanding. Call light in reach. Will monitor.
[2024-07-07 05:39] VITALS: BP 133/70; PULSE 57; TEMP 98
--- NOTE | 2024-07-07 06:26 | NUR ---
Patient had an uneventful night. Received oxycodone x2 for pain with adequate control. Up to bathroom several times with loose stools. Denied nausea/shortness of breath. VS stable. Denies current needs. Call light in reach. Will monitor.
[2024-07-07 07:00] VITALS: BP_SYST 133
--- NOTE | 2024-07-07 08:00 | NUR ---
PATIENT IS A&O AND SITTING UP IN BED WITH BREAKFAST TRAY. VSS. REPORTS SOME DISCOMFORT IN LEFT SHOULDER, GAVE PRN TYLENOL. ANALYTICS ASSOCIATE ALREADY GAVE PRN ROXICODONE BEFORE SHIFT CHANGE. NO OTHER COMPLAINTS. HEAD TO TOE ASSESSMENT COMPLETE. AM MEDS GIVEN. NO OTHER NEEDS. CALL LIGHT IN REACH.
[2024-07-07] MEDS ORDERED: Lidocaine 4% Topical Patch TP SCH (09:00)
--- NOTE | 2024-07-07 09:57 | NUR ---
shortage worker confirmed with [facility] they are able to accept patient upon discharge tomorrow. SW will send updates later today after patient has finished his last day of therapy. Discharge plan: Home with Home Health - [facility]
--- NOTE | 2024-07-07 11:14 | NUR ---
utility maintenance worker reviewed the important message from Medicare with patient. Patient understood. Patient signed form. SW made copy, placed original in chart and provided copy to patient. Discharge plan: Home with home health [facility]
--- NOTE | 2024-07-07 13:53 | NUR ---
emergency service worker secure emailed clinical updates to [facility]. Discharge plan: Home with [facility] - discharge 07/08/24
[2024-07-07 16:59] VITALS: BP 124/76; PULSE 59; TEMP 97.7
[2024-07-07 19:30] VITALS: BP_SYST 124
[2024-07-07] MEDS ORDERED: Pregabalin 150 MG CAP PO SCH (21:00)
--- NOTE | 2024-07-07 22:18 | NUR ---
ASSESSMENT COMPLETED EARLIER. PT WENT TO BATHROOM. HAS NO COMPLAINTS AT THIS TIME. MEDICATIONS ADMINISTERED PER EMAR. CALL LIGHT IS WITHIN REACH. PT GOT READY FOR BED. AMBULTED TO THE BED. BED IN LOWEST POSTION WITH BED ALARM ACTIVATED.
[2024-07-08 05:13] VITALS: BP 114/49; PULSE 47; TEMP 97.7
[2024-07-08 07:00] VITALS: BP_SYST 114
--- NOTE | 2024-07-08 08:30 | NUR ---
Pt A&Ox4. Refused breakfast. Pt is up with x1 assist w/ walker and gait belt. Shift assessment complete and morning medications administered. Planning to discharge pt today. Pt has ride home lined up. No concerns about anything regarding his care today. No futher needs at this time. Call light within reach.
[2024-07-08] MEDS ORDERED: ZANAFLEX 4MG TAB4 MG PO (10:01)
[2024-07-08] MEDS ORDERED: TYLENOL 325MG325 MG PO (10:03)
[2024-07-08] MEDS ORDERED: ROXICODONE 55 MG/TAB PO (10:06)
--- NOTE | 2024-07-08 11:31 | NUR ---
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 Patient is ready for discharge today with home health services. [employer] emailed discharge orders and clinical updates to [facility]. Discharge plan: Home with home health - [facility]
--- NOTE | 2024-07-08 12:14 | NUR ---
Went over discharge instructions with patient and patient verbalized understanding. Pt escorted down to ER entrance with all belongings with myself and aide. Pt left with sister in law in her POV.
== END 2024-07-08 12:16 | disposition home health service (06) | DRG 552 ==
PROVIDERS: ADMIT Physical Medicine & Rehabilitation Sports Medicine
DX: M54.16 Radiculopathy, lumbar region (principal); I13.0 Hypertensive heart and chronic kidney disease with heart failure and stage 1 through stage 4 chronic kidney disease, or unspecified chronic kidney disease; I50.32 Chronic diastolic (congestive) heart failure; M21.372 Foot drop, left foot; R29.898 Other symptoms and signs involving the musculoskeletal system; J45.909 Unspecified asthma, uncomplicated; R27.0 Ataxia, unspecified; R53.81 Other malaise; I25.10 Atherosclerotic heart disease of native coronary artery without angina pectoris; E11.51 Type 2 diabetes mellitus with diabetic peripheral angiopathy without gangrene; E11.40 Type 2 diabetes mellitus with diabetic neuropathy, unspecified; E11.22 Type 2 diabetes mellitus with diabetic chronic kidney disease; E78.5 Hyperlipidemia, unspecified; K21.9 Gastro-esophageal reflux disease without esophagitis; G25.81 Restless legs syndrome; K59.00 Constipation, unspecified; Z79.82 Long term (current) use of aspirin; Z95.5 Presence of coronary angioplasty implant and graft; Z79.899 Other long term (current) drug therapy; Z95.818 Presence of other cardiac implants and grafts; Z79.52 Long term (current) use of systemic steroids; Z79.4 Long term (current) use of insulin; Z74.09 Other reduced mobility; Z79.84 Long term (current) use of oral hypoglycemic drugs; Z87.891 Personal history of nicotine dependence; R19.7 Diarrhea, unspecified; M25.512 Pain in left shoulder; N40.0 Benign prostatic hyperplasia without lower urinary tract symptoms; N18.30 Chronic kidney disease, stage 3 unspecified
CPT/HCPCS: A9270; J1815; J7512

== ENCOUNTER → 2024-07-14 | Outpatient (CLI) | payer MEDICARE, OTHER ==
[~2024-07-14] MED LIST changes: +BREZTRI AEROS10.7 GM; +CELEBREX 1100 MG/CAP PO; +MIRALAX PA17 GM/Dose PO; +MOTRIN 200200 MG/TAB PO; +ROXICODONE 55 MG/TAB PO; +TYLENOL 325MG325 MG PO; +VITAMIN D 400400 IU PO; +ZANAFLEX 4MG TAB4 MG PO
== END ==
LOC: MHCPAIN 14:14
DX: M54.16 Radiculopathy, lumbar region (principal); M96.1 Postlaminectomy syndrome, not elsewhere classified; E11.22 Type 2 diabetes mellitus with diabetic chronic kidney disease; Z79.4 Long term (current) use of insulin; M71.38 Other bursal cyst, other site
CPT/HCPCS: G0463

== ENCOUNTER 2024-08-20 20:40 | Emergency (ER) | payer MEDICARE, OTHER ==
[~2024-08-20] VITALS: Ht 190.5 cm; Wt 89.1 kg
[2024-08-20 20:53] VITALS: TEMP 96.8
[2024-08-20] MEDS ORDERED: Morphine 4 MG/ML VIAL IV ONE (21:15)
[2024-08-20 21:35] LABS: BASO % 0.1 % (0.0-2.0); EOS % 0.1 % (0.0-4.0); GRAN # 12.2 K/mm3 (1.4-6.5); GRAN % 80.7 % (42.2-75.2); HEMATOCRIT 44.8 % (42.0-52.0); HEMOGLOBIN 15.1 g/dl (13.5-18.0); LYMPH # 1.6 K/mm3 (1.2-3.4); LYMPH % 10.4 % (20.0-51.0); MEAN CELL VOLUME 92 fl (80.0-100.0); MEAN CORPUSCULAR HEMOGLOBIN 31 pg (27-31); MEAN CORPUSCULAR HGB CONC 34 g/dl (33.0-37.0); MEAN PLATELET VOLUME 11.7 fl (7.4-10.4); MONO # 1.2 K/mm3 (0.1-0.6); MONO % 8.2 % (1.7-9.3); PLATELET COUNT 216 K/mm3 (130-400); RED BLOOD COUNT 4.88 M/mm3 (4.20-5.60); REDCELL DISTRIBUTION WIDTH-CV 13.3 % (11.5-14.5)
[2024-08-20 21:56] LABS: ALBUMIN 3.8 g/dL (3.4-4.8); BILIRUBIN,TOTAL 0.4 mg/dL (0.2-1.2); CALCIUM 9.6 mg/dL (8.4-10.2); CREATININE, serum 1.22 mg/dL (0.72-1.25); POTASSIUM 4.5 mEq/L (3.5-4.5); TOTAL PROTEIN 6.9 g/dl (6.2-8.1)
[2024-08-20] MEDS ORDERED: HYDROmorphone 0.5 MG/0.5 ML SYRINGE IV ONE (23:45)
[2024-08-21] MEDS ORDERED: DOXYCYCLINE 10100 MG PO (01:03)
[2024-08-21 02:31] VITALS: BP 153/77; PULSE 62
== END 2024-08-21 02:31 | disposition home or self-care (01) ==
LOC: COL.ER 20:40
PROVIDERS: Emergency Medicine
DX: L03.115 Cellulitis of right lower limb (principal)
CPT/HCPCS: J1171; J2270; J3370; J7040

== ENCOUNTER 2024-08-30 17:36 | Emergency (ER) | payer MEDICARE, OTHER ==
[~2024-08-30] VITALS: Ht 190.5 cm; Wt 88.6 kg
[~2024-08-30 17:36] MED LIST changes: +DOXYCYCLINE 10100 MG PO
[2024-08-30 17:45] VITALS: TEMP 97.8
[2024-08-30 18:24] LABS: BASO % 0.3 % (0.0-2.0); EOS % 0.4 % (0.0-4.0); GRAN # 4.9 K/mm3 (1.4-6.5); GRAN % 64.4 % (42.2-75.2); HEMATOCRIT 44.4 % (42.0-52.0); HEMOGLOBIN 14.9 g/dl (13.5-18.0); LYMPH # 1.9 K/mm3 (1.2-3.4); LYMPH % 24.9 % (20.0-51.0); MEAN CELL VOLUME 93 fl (80.0-100.0); MEAN CORPUSCULAR HEMOGLOBIN 31 pg (27-31); MEAN CORPUSCULAR HGB CONC 34 g/dl (33.0-37.0); MEAN PLATELET VOLUME 11.6 fl (7.4-10.4); MONO # 0.7 K/mm3 (0.1-0.6); MONO % 9.6 % (1.7-9.3); PLATELET COUNT 161 K/mm3 (130-400); RED BLOOD COUNT 4.78 M/mm3 (4.20-5.60); REDCELL DISTRIBUTION WIDTH-CV 13.4 % (11.5-14.5)
[2024-08-30 18:42] LABS: ALBUMIN 3.5 g/dL (3.4-4.8); BILIRUBIN,TOTAL 0.4 mg/dL (0.2-1.2); CALCIUM 9.5 mg/dL (8.4-10.2); CREATININE, serum 1.04 mg/dL (0.72-1.25); POTASSIUM 3.8 mEq/L (3.5-4.5); TOTAL PROTEIN 6.8 g/dl (6.2-8.1)
[2024-08-30] MEDS ORDERED: LEVAQUIN 750MG750 M1 PO (18:56)
[2024-08-30 20:20] VITALS: BP 143/87; PULSE 68
== END 2024-08-30 20:20 | disposition home or self-care (01) ==
LOC: COL.ER 17:36
PROVIDERS: Physician Assistant
DX: E11.40 Type 2 diabetes mellitus with diabetic neuropathy, unspecified (principal); L03.116 Cellulitis of left lower limb; L03.115 Cellulitis of right lower limb
CPT/HCPCS: J1956